=== PATIENT | male | born 1945 | race Hispanic/Latino ===

== ENCOUNTER 2017-06-11 23:27 | Inpatient (IN) | payer MEDICARE ==
[~2017-06-11] VITALS: Ht 170.2 cm; Wt 68.9 kg
[~2017-06-11 23:27] MED LIST: CHOLECALCIFEROL PO; CYCL10TA7 PO; FURO20TA4 PO; GABA-318 PO; IPRA4AER IH; IRON1CAP32 PO; MAGN400T6 PO; MIRA25TA PO; POTA10CA44 PO; RIVA15TA PO; TAMS0.4C32 PO; THEO400T3 PO; TRAM50TA4 PO; TRAV5DRO OP; [UNRECOGNIZED DRUG - CODE] PO
[2017-06-11] MEDS ORDERED: PROPOFOL 1000 MG/100 ML 100 ML IV ONE (23:32)
[2017-06-11 23:57] LABS: ABG BASE EXCESS 1.1 mmol/L (-2.0-3.0); ABG HCO3 29.5 mmol/L (21.0-28.0); ABG OXYGEN SATURATION 99.6 % (95.0-99.0); ABG PCO2 64 mmHg (35-48)
[2017-06-12] VITALS (19 sets, daily range): BP systolic 103–133; BP diastolic 57–74
[2017-06-12 00:02] LABS: BASOPHILS % (AUTO) 0.1 % (0.0-5.0); HEMATOCRIT 39.5 % (42-54); LYMPHOCYTES % (AUTO) 2.6 % (21.0-51.0); MEAN CORPUSCULAR HEMOGLOBIN 29.1 pg (27.0-33.0); MEAN CORPUSCULAR HGB CONC 32.3 g/dL (32.0-36.0); MEAN CORPUSCULAR VOLUME 89.9 fL (79-99); MONOCYTES % (AUTO) 5.1 % (3.0-13.0); NEUTROPHILS % (AUTO) 92.2 % (40.0-77.0); PLATELET COUNT (AUTO) 246 K/uL (130-400); RED BLOOD CELL COUNT(AUTO) 4.39 MIL/uL (4.50-6.20); RED CELL DISTRIBUTION WIDTH 15.2 % (11.0-15.5); WHITE BLOOD COUNT (AUTO) 23.7 K/uL (4.8-10.8)
[2017-06-12 00:18] LABS: B-TYPE NATRIURETIC PEPTIDE 872 pg/mL (0-100)
[2017-06-12] MEDS ORDERED: ZOSYN 3.375GM+NS 50ML 50 ML IV ONE (00:20)
[2017-06-12] MEDS ORDERED: CEFTRIAXONE SODIUM 1 GM ONE (00:20)
[2017-06-12 00:35] LABS: CREATININE 1.1 mg/dL (0.5-1.5); POTASSIUM 4.2 mmol/L (3.5-5.1)
[2017-06-12 00:48] LABS: ALBUMIN 3.2 g/dL (3.5-5.0); BILIRUBIN,TOTAL 0.3 mg/dL (0.2-1.0); CREATINE KINASE MB 4.6 ng/mL (0.5-3.6); TOTAL PROTEIN, SERUM 6.8 g/dL (6.0-8.3)
[2017-06-12] MEDS ORDERED: NOREPINEPHRINE BITARTRATE 1 MG/1 ML ML IV ONE ×2 (01:31→01:42)
[2017-06-12] MEDS ORDERED: PROPOFOL 1000 MG/100 ML 100 ML IV ONE (05:30)
[2017-06-12] MEDS ORDERED: PROPOFOL 1000 MG/100 ML IV PRN (08:15)
[2017-06-12] MEDS: FUROSEMIDE 10 MG/ML 4ML VIAL IV SCH ×2 (08:50→20:49)
[2017-06-12] MEDS: ZOSYN 3.375GM+NS 50ML 50 ML IV SCH ×2 (08:50→17:03)
[2017-06-12] MEDS: FAMOTIDINE/PF 20 MG/2 ML VIAL IV SCH ×2 (08:50→20:45)
[2017-06-12] MEDS: ENOXAPARIN SODIUM 40 MG/0.4 ML SYRINGE SQ SCH (08:51)
[2017-06-12] MEDS: METHYLPREDNISOLONE SOD SUCC 40MG/ML 1ML IVP SCH ×3 (08:53→20:47)
[2017-06-12] MEDS: NOREPINEPHRINE 4MG/NS 250ML 250 ML IV SCH (09:02)
[2017-06-12] MEDS ORDERED: GLUCAGON 1MG KIT 1 MG ML IM PRN (09:30)
[2017-06-12] MEDS ORDERED: DEXTROSE 50%-WATER 50 ML DISP.SYRIN IV PRN (09:30)
[2017-06-12] MEDS: IPRATROPIUM/ALBUTEROL SULFATE 3 ML SOLUTION IH SCH ×3 (10:58→23:47)
[2017-06-12] MEDS: INSULIN HUMULIN R 100 UNIT/ML 3ML SQ SCH ×2 (12:00→18:00)
[2017-06-12] MEDS: PROPOFOL 1000 MG/100 ML 100 ML IV PRN ×2 (13:19→20:44)
[2017-06-13] VITALS (27 sets, daily range): BP systolic 97–137; BP diastolic 56–87
[2017-06-13 00:13] LABS: MAGNESIUM 2.1 mg/dL (1.80-2.40); POTASSIUM 3.5 mmol/L (3.5-5.1)
[2017-06-13] MEDS: ZOSYN 3.375GM+NS 50ML 50 ML IV SCH ×3 (00:45→15:40)
[2017-06-13] MEDS: INSULIN HUMULIN R 100 UNIT/ML 3ML SQ SCH ×4 (00:45→17:30)
[2017-06-13] MEDS: METHYLPREDNISOLONE SOD SUCC 40MG/ML 1ML IVP SCH ×4 (02:05→20:59)
[2017-06-13] MEDS: PROPOFOL 1000 MG/100 ML 100 ML IV PRN (02:05)
[2017-06-13 03:58] LABS: CREATININE 1.1 mg/dL (0.5-1.5); POTASSIUM 3.2 mmol/L (3.5-5.1)
[2017-06-13 03:59] LABS: HEMATOCRIT 37.3 % (42-54); LYMPHOCYTES % (AUTO) 4.1 % (21.0-51.0); MEAN CORPUSCULAR HEMOGLOBIN 30.4 pg (27.0-33.0); MEAN CORPUSCULAR HGB CONC 34.3 g/dL (32.0-36.0); MEAN CORPUSCULAR VOLUME 88.9 fL (79-99); MONOCYTES % (AUTO) 4.6 % (3.0-13.0); NEUTROPHILS % (AUTO) 91.3 % (40.0-77.0); PLATELET COUNT (AUTO) 245 K/uL (130-400); RED BLOOD CELL COUNT(AUTO) 4.19 MIL/uL (4.50-6.20); RED CELL DISTRIBUTION WIDTH 15.2 % (11.0-15.5); WHITE BLOOD COUNT (AUTO) 13.3 K/uL (4.8-10.8)
[2017-06-13 04:25] LABS: B-TYPE NATRIURETIC PEPTIDE 752 pg/mL (0-100)
[2017-06-13] MEDS: IPRATROPIUM/ALBUTEROL SULFATE 3 ML SOLUTION IH SCH ×3 (06:28→19:28)
[2017-06-13] MEDS ORDERED: POTASSIUM CHLORIDE 10% ELIXIR 20 MEQ/15 ML UDCUP PO PRN (08:15)
[2017-06-13] MEDS: NOREPINEPHRINE 4MG/NS 250ML 250 ML IV SCH (08:43)
[2017-06-13] MEDS: POTASSIUM CHLORIDE 20MEQ/100ML 100 ML IV PRN ×2 (08:46→12:02)
[2017-06-13] MEDS: LIDOCAINE HCL-MPF 1% 2ML VIAL IVP PRN ×2 (08:46→12:02)
[2017-06-13 09:00] LABS: ABG HCO3 34.6 mmol/L (21.0-28.0); ABG OXYGEN SATURATION 99.1 % (95.0-99.0); ABG PCO2 41 mmHg (35-48)
[2017-06-13] MEDS: FUROSEMIDE 10 MG/ML 4ML VIAL IV SCH ×2 (09:00→21:01)
[2017-06-13] MEDS: FAMOTIDINE/PF 20 MG/2 ML VIAL IV SCH ×2 (09:00→21:01)
[2017-06-13] MEDS: ENOXAPARIN SODIUM 40 MG/0.4 ML SYRINGE SQ SCH (09:05)
[2017-06-13 12:20] LABS: ABG BASE EXCESS 13.3 mmol/L (-2.0-3.0); ABG PCO2 47 mmHg (35-48)
[2017-06-13] MEDS: POTASSIUM CHLORIDE 20 MEQ ERTAB PO PRN (21:03)
[2017-06-14] VITALS (21 sets, daily range): BP systolic 80–132; BP diastolic 41–70
[2017-06-14] MEDS: ZOSYN 3.375GM+NS 50ML 50 ML IV SCH ×3 (00:02→16:26)
[2017-06-14] MEDS: IPRATROPIUM/ALBUTEROL SULFATE 3 ML SOLUTION IH SCH ×5 (00:18→23:27)
[2017-06-14] MEDS: METHYLPREDNISOLONE SOD SUCC 40MG/ML 1ML IVP SCH ×4 (02:30→20:45)
[2017-06-14] MEDS: INSULIN HUMULIN R 100 UNIT/ML 3ML SQ SCH ×4 (06:00→16:13)
[2017-06-14 08:49] LABS: POTASSIUM 3.3 mmol/L (3.5-5.1)
[2017-06-14] MEDS: FAMOTIDINE/PF 20 MG/2 ML VIAL IV SCH ×2 (08:55→20:45)
[2017-06-14] MEDS: FUROSEMIDE 10 MG/ML 4ML VIAL IV SCH ×2 (08:55→20:45)
[2017-06-14] MEDS: ENOXAPARIN SODIUM 40 MG/0.4 ML SYRINGE SQ SCH (09:02)
[2017-06-14] MEDS: POTASSIUM CHLORIDE 20 MEQ ERTAB PO PRN ×3 (09:25→17:40)
[2017-06-15] MEDS: ZOSYN 3.375GM+NS 50ML 50 ML IV SCH ×3 (00:53→15:38)
[2017-06-15] MEDS: METHYLPREDNISOLONE SOD SUCC 40MG/ML 1ML IVP SCH ×4 (03:04→21:42)
[2017-06-15 03:10] VITALS: BP 102/66
[2017-06-15] MEDS: IPRATROPIUM/ALBUTEROL SULFATE 3 ML SOLUTION IH SCH ×4 (05:49→23:51)
[2017-06-15] MEDS: INSULIN HUMULIN R 100 UNIT/ML 3ML SQ SCH ×5 (06:00→21:49)
[2017-06-15] MEDS ORDERED: GUAIFENESIN-DM 200/20 MG 10 ML PO PRN (06:45)
[2017-06-15 07:51] VITALS: BP 115/68
[2017-06-15] MEDS: ENOXAPARIN SODIUM 40 MG/0.4 ML SYRINGE SQ SCH (07:53)
[2017-06-15] MEDS: FAMOTIDINE/PF 20 MG/2 ML VIAL IV SCH ×2 (07:54→21:42)
[2017-06-15] MEDS: FUROSEMIDE 10 MG/ML 4ML VIAL IV SCH ×2 (07:54→21:43)
[2017-06-15 11:19] VITALS: BP 114/67
[2017-06-15 15:58] VITALS: BP 117/69
[2017-06-15 19:10] VITALS: BP 112/58
[2017-06-15 23:05] VITALS: BP 101/56
[2017-06-16] MEDS: ZOSYN 3.375GM+NS 50ML 50 ML IV SCH ×3 (00:25→16:18)
[2017-06-16] MEDS: METHYLPREDNISOLONE SOD SUCC 40MG/ML 1ML IVP SCH ×4 (02:10→21:15)
[2017-06-16 03:05] VITALS: BP 97/52
[2017-06-16] MEDS: INSULIN HUMULIN R 100 UNIT/ML 3ML SQ SCH ×4 (06:00→21:03)
[2017-06-16] MEDS: IPRATROPIUM/ALBUTEROL SULFATE 3 ML SOLUTION IH SCH ×4 (06:25→23:06)
[2017-06-16 08:16] VITALS: BP 100/71
[2017-06-16] MEDS: FUROSEMIDE 10 MG/ML 4ML VIAL IV SCH ×2 (08:29→20:55)
[2017-06-16] MEDS: FAMOTIDINE/PF 20 MG/2 ML VIAL IV SCH ×2 (08:29→20:55)
[2017-06-16] MEDS: ENOXAPARIN SODIUM 40 MG/0.4 ML SYRINGE SQ SCH (08:29)
[2017-06-16] MEDS: POTASSIUM CHLORIDE 20 MEQ ERTAB PO PRN (08:37)
[2017-06-16 11:38] VITALS: BP 98/61
[2017-06-16 16:10] VITALS: BP 106/65
[2017-06-16 19:00] VITALS: BP 120/53
[2017-06-16 23:00] VITALS: BP 119/69
[2017-06-17] MEDS: ZOSYN 3.375GM+NS 50ML 50 ML IV SCH ×3 (02:40→16:44)
[2017-06-17] MEDS: METHYLPREDNISOLONE SOD SUCC 40MG/ML 1ML IVP SCH ×4 (02:40→20:17)
[2017-06-17 03:00] VITALS: BP 102/61
[2017-06-17] MEDS: INSULIN HUMULIN R 100 UNIT/ML 3ML SQ SCH ×4 (05:58→22:07)
[2017-06-17] MEDS: IPRATROPIUM/ALBUTEROL SULFATE 3 ML SOLUTION IH SCH ×3 (06:41→17:26)
[2017-06-17 07:00] VITALS: BP 103/69
[2017-06-17] MEDS: FUROSEMIDE 10 MG/ML 4ML VIAL IV SCH ×2 (09:12→20:18)
[2017-06-17] MEDS: FAMOTIDINE/PF 20 MG/2 ML VIAL IV SCH ×2 (09:13→20:16)
[2017-06-17 11:00] VITALS: BP_SYST 106; BP_SYST 91; BP_DIAS 67; BP_DIAS 68
[2017-06-17 15:39] VITALS: BP 124/68
[2017-06-17] MEDS: ENOXAPARIN SODIUM 40 MG/0.4 ML SYRINGE SQ SCH (16:44)
[2017-06-17 19:00] VITALS: BP 106/41
[2017-06-17 23:00] VITALS: BP 100/56
[2017-06-18] MEDS: ZOSYN 3.375GM+NS 50ML 50 ML IV SCH ×2 (00:13→08:13)
[2017-06-18] MEDS ORDERED: ALBUTEROL SULFATE 0.083% 2.5 MG/3 ML INH IH ONE (00:19)
[2017-06-18] MEDS ORDERED: IPRATROPIUM 0.5 MG/2.5 ML INH IH ONE (00:19)
[2017-06-18] MEDS: IPRATROPIUM/ALBUTEROL SULFATE 3 ML SOLUTION IH SCH ×4 (00:24→11:40)
[2017-06-18] MEDS: METHYLPREDNISOLONE SOD SUCC 40MG/ML 1ML IVP SCH ×3 (01:19→15:38)
[2017-06-18 03:00] VITALS: BP 116/59
[2017-06-18] MEDS ORDERED: INSULIN HUMULIN R 100 UNIT/ML 3ML SQ SCH (07:30)
[2017-06-18 08:00] VITALS: BP 126/59
[2017-06-18 08:03] LABS: HEMATOCRIT 48.2 % (42-54); MEAN CORPUSCULAR HEMOGLOBIN 29.7 pg (27.0-33.0); MEAN CORPUSCULAR HGB CONC 33.4 g/dL (32.0-36.0); MEAN CORPUSCULAR VOLUME 88.9 fL (79-99); PLATELET COUNT (AUTO) 245 K/uL (130-400); RED BLOOD CELL COUNT(AUTO) 5.42 MIL/uL (4.50-6.20); WHITE BLOOD COUNT (AUTO) 12.7 K/uL (4.8-10.8)
[2017-06-18] MEDS: FAMOTIDINE/PF 20 MG/2 ML VIAL IV SCH (08:13)
[2017-06-18] MEDS: FUROSEMIDE 10 MG/ML 4ML VIAL IV SCH (08:13)
[2017-06-18] MEDS: ENOXAPARIN SODIUM 40 MG/0.4 ML SYRINGE SQ SCH (08:14)
[2017-06-18 08:28] LABS: ALBUMIN 3.2 g/dL (3.5-5.0); BILIRUBIN,TOTAL 0.4 mg/dL (0.2-1.0); CREATININE 0.9 mg/dL (0.5-1.5); POTASSIUM 3.6 mmol/L (3.5-5.1); TOTAL PROTEIN, SERUM 6.9 g/dL (6.0-8.3)
[2017-06-18 12:18] VITALS: BP 99/68
[2017-06-18 16:00] VITALS: BP 105/65
== END 2017-06-18 17:30 | disposition home or self-care (01) | DRG 871 ==
LOC: EDH 23:27 → EDHIP 06-12 00:45 → 2CH 06-12 01:15 → 3CH 06-14 17:43
PROVIDERS: ADMIT Family Medicine; ATTEND Family Medicine
PROC: 5A1945Z Respiratory Ventilation, 24-96 Consecutive Hours (ICD-10-PCS; principal; 2017-06-12)
PROC: 0BH17EZ Insertion of Endotracheal Airway into Trachea, Via Natural or Artificial Opening (ICD-10-PCS; 2017-06-12)
DX: A41.9 Sepsis, unspecified organism (principal); J96.21 Acute and chronic respiratory failure with hypoxia; J18.9 Pneumonia, unspecified organism; I50.43 Acute on chronic combined systolic (congestive) and diastolic (congestive) heart failure; I11.0 Hypertensive heart disease with heart failure; E11.9 Type 2 diabetes mellitus without complications; I48.91 Unspecified atrial fibrillation; J96.22 Acute and chronic respiratory failure with hypercapnia; J44.1 Chronic obstructive pulmonary disease with (acute) exacerbation; J44.0 Chronic obstructive pulmonary disease with (acute) lower respiratory infection; I25.10 Atherosclerotic heart disease of native coronary artery without angina pectoris; Z79.01 Long term (current) use of anticoagulants; Z86.711 Personal history of pulmonary embolism; Z87.891 Personal history of nicotine dependence; Z95.0 Presence of cardiac pacemaker; Z28.21 Immunization not carried out because of patient refusal
CPT/HCPCS: 36415; 36600; 71010; 71045; 80048; 80053; 80162; 82330; 82435; 82550; 82553; 82803; 82947; 82948; 83605; 83735; 83880; 84132; 84295; 84484; 85018; 85025; 85027; 87040; 87804; 93005; 94003; 94640; 94660; 94664; 99291; J0696; J1650; J1815; J1940; J1956; J2543; J2704; J2920; J2930; J3480; J3490; J7030; J7040

== ENCOUNTER 2017-06-30 07:39 | Inpatient (IN) | payer MEDICARE ==
[~2017-06-30] VITALS: Ht 170.2 cm; Wt 70.0 kg
[2017-06-30] MEDS ORDERED: IPRATROPIUM 0.5 MG/2.5 ML INH IH ONE (07:53)
[2017-06-30 08:25] LABS: POTASSIUM 3.9 mmol/L (3.5-5.1)
[2017-06-30 08:31] LABS: BILIRUBIN,TOTAL 0.3 mg/dL (0.2-1.0); EOSINOPHILS % (AUTO) 1.3 % (0.0-8.0); HEMATOCRIT 44.4 % (42-54); LYMPHOCYTES % (AUTO) 3.7 % (21.0-51.0); MEAN CORPUSCULAR HEMOGLOBIN 29.7 pg (27.0-33.0); MEAN CORPUSCULAR HGB CONC 31.9 g/dL (32.0-36.0); MEAN CORPUSCULAR VOLUME 92.9 fL (79-99); MONOCYTES % (AUTO) 2.9 % (3.0-13.0); NEUTROPHILS % (AUTO) 89.1 % (40.0-77.0); NUCLEATED RED BLOOD CELLS 0.3 % (0.0-0.19); RED BLOOD CELL COUNT(AUTO) 4.78 MIL/uL (4.50-6.20); RED CELL DISTRIBUTION WIDTH 14.9 % (11.0-15.5); TOTAL PROTEIN, SERUM 6.5 g/dL (6.0-8.3); WHITE BLOOD COUNT (AUTO) 15.3 K/uL (4.8-10.8)
[2017-06-30] MEDS ORDERED: METHYLPREDNISOLONE SOD SUCC 125MG/2ML VIAL ONE (08:53)
[2017-06-30] MEDS ORDERED: DIGOXIN 250 MCG TABLET PO ONE ×2 (09:01→09:04)
[2017-06-30 09:14] LABS: PLATELET COUNT (AUTO) 110 K/uL (130-400)
[2017-06-30 11:05] LABS: ABG BASE EXCESS 2.8 mmol/L (-2.0-3.0); ABG HCO3 26.7 mmol/L (21.0-28.0); ABG OXYGEN SATURATION 99.4 % (95.0-99.0); ABG PCO2 39 mmHg (35-48)
[2017-06-30] MEDS ORDERED: LEVOFLOXACIN 500 MG/D5W 100 ML 100 ML ONE (12:28)
[2017-06-30 14:30] VITALS: BP 114/66
[2017-06-30] MEDS ORDERED: TERB250T51 PO (14:45)
[2017-06-30] MEDS ORDERED: FLUT16H NS (14:45)
[2017-06-30] MEDS ORDERED: METO10TA3 PO (14:45)
[2017-06-30] MEDS ORDERED: SUCR1TAB2 PO (14:45)
[2017-06-30] MEDS ORDERED: MAG HYDROX/AL HYDROX/SIMETH ES 30 ML SUSP UDCUP PO PRN (15:00)
[2017-06-30] MEDS ORDERED: NITROGLYCERIN 0.4 MG SL TAB SL PRN (15:00)
[2017-06-30] MEDS ORDERED: ZOLPIDEM TARTRATE 5 MG TAB PO PRN (15:00)
[2017-06-30] MEDS ORDERED: POTASSIUM CHLORIDE 20MEQ/100ML 100 ML IV PRN (15:00)
[2017-06-30] MEDS ORDERED: LACTULOSE 20 GM/30 ML UDCUP PO PRN (15:00)
[2017-06-30] MEDS ORDERED: CLONIDINE HCL 0.1 MG TABLET PO PRN (15:00)
[2017-06-30] MEDS ORDERED: ONDANSETRON HCL 4 MG/2 ML VIAL IVP PRN (15:00)
[2017-06-30] MEDS ORDERED: DiphenhydrAMINE HCL 50 MG/ML VIAL IVP PRN (15:00)
[2017-06-30] MEDS ORDERED: POTASSIUM CHLORIDE 10% ELIXIR 20 MEQ/15 ML UDCUP PO PRN (15:00)
[2017-06-30] MEDS ORDERED: GUAIFENESIN SUGAR-FREE 100 MG/5 ML UDCUP PO PRN (15:00)
[2017-06-30] MEDS ORDERED: IPRATROPIUM/ALBUTEROL SULFATE 3 ML SOLUTION IH PRN (15:00)
[2017-06-30] MEDS ORDERED: GLUCAGON 1MG KIT 1 MG ML IM PRN (15:00)
[2017-06-30] MEDS ORDERED: DEXTROSE 50%-WATER 50 ML DISP.SYRIN IV PRN (15:00)
[2017-06-30] MEDS ORDERED: SODIUM CHLORIDE 0.9% 10 ML VIAL IVP SCH (15:00)
[2017-06-30] MEDS ORDERED: ACETAMINOPHEN 325 MG TAB PO PRN ×2 (15:00)
[2017-06-30] MEDS ORDERED: LIDOCAINE HCL-MPF 1% 2ML VIAL IJ PRN (15:00)
[2017-06-30] MEDS: ENOXAPARIN SODIUM 40 MG/0.4 ML SYRINGE SQ SCH (15:31)
[2017-06-30] MEDS: INSULIN R PO SSI SQ SCH ×2 (16:30→20:55)
[2017-06-30 16:41] VITALS: BP 122/74
[2017-06-30 19:31] VITALS: BP 132/69
[2017-06-30] MEDS: FAMOTIDINE 20MG TAB 20 MG TAB PO SCH (20:00)
[2017-06-30] MEDS: IPRATROPIUM/ALBUTEROL SULFATE 3 ML SOLUTION IH SCH (22:08)
[2017-07-01] VITALS (7 sets, daily range): BP systolic 96–118; BP diastolic 46–66
[2017-07-01] MEDS: IPRATROPIUM/ALBUTEROL SULFATE 3 ML SOLUTION IH SCH ×5 (02:21→21:59)
[2017-07-01 04:37] LABS: HEMATOCRIT 32.4 % (42-54); MEAN CORPUSCULAR HEMOGLOBIN 29.5 pg (27.0-33.0); MEAN CORPUSCULAR HGB CONC 33.4 g/dL (32.0-36.0); MEAN CORPUSCULAR VOLUME 88.2 fL (79-99); PLATELET COUNT (AUTO) 256 K/uL (130-400); RED BLOOD CELL COUNT(AUTO) 3.67 MIL/uL (4.50-6.20); WHITE BLOOD COUNT (AUTO) 11.2 K/uL (4.8-10.8)
[2017-07-01 04:48] LABS: POTASSIUM 3.7 mmol/L (3.5-5.1)
[2017-07-01] MEDS: POTASSIUM CHLORIDE 20 MEQ ERTAB PO PRN ×2 (05:28→06:21)
[2017-07-01] MEDS: INSULIN R PO SSI SQ SCH ×4 (05:38→21:00)
[2017-07-01] MEDS ORDERED: DOCUSATE SODIUM 100 MG CAP PO PRN (08:00)
[2017-07-01] MEDS: LEVOFLOXACIN 500 MG/D5W 100 ML 100 ML IV SCH (09:36)
[2017-07-01] MEDS: ENOXAPARIN SODIUM 40 MG/0.4 ML SYRINGE SQ SCH (09:37)
[2017-07-01] MEDS: FAMOTIDINE 20MG TAB 20 MG TAB PO SCH ×2 (09:37→22:06)
[2017-07-01] MEDS: METHYLPREDNISOLONE SOD SUCC 125MG/2ML VIAL IVP SCH (09:37)
[2017-07-01] MEDS: DIPHENHYDRAMINE HCL 25 MG CAPSULE PO PRN ×2 (12:27→22:07)
[2017-07-01 16:39] LABS: ABG BASE EXCESS -0.3 mmol/L (-2.0-3.0); ABG HCO3 23.3 mmol/L (21.0-28.0); ABG OXYGEN SATURATION 96.9 % (95.0-99.0); ABG PCO2 35 mmHg (35-48)
[2017-07-01] MEDS: FUROSEMIDE 10 MG/ML 2ML VIAL IV SCH (17:07)
[2017-07-02] MEDS: IPRATROPIUM/ALBUTEROL SULFATE 3 ML SOLUTION IH SCH ×3 (01:51→09:28)
[2017-07-02] MEDS: FUROSEMIDE 10 MG/ML 2ML VIAL IV SCH ×2 (01:58→17:17)
[2017-07-02 03:39] VITALS: BP 104/56
[2017-07-02] MEDS: INSULIN R PO SSI SQ SCH ×4 (06:12→21:00)
[2017-07-02 06:35] LABS: HEMATOCRIT 32.5 % (42-54); RED BLOOD CELL COUNT(AUTO) 3.72 MIL/uL (4.50-6.20)
[2017-07-02 06:36] LABS: MEAN CORPUSCULAR HEMOGLOBIN 29.2 pg (27.0-33.0); MEAN CORPUSCULAR HGB CONC 33.5 g/dL (32.0-36.0); MEAN CORPUSCULAR VOLUME 87.3 fL (79-99); PLATELET COUNT (AUTO) 290 K/uL (130-400); RED CELL DISTRIBUTION WIDTH 15.2 % (11.0-15.5)
[2017-07-02 06:56] LABS: POTASSIUM 3.9 mmol/L (3.5-5.1)
[2017-07-02 07:00] VITALS: BP 101/62
[2017-07-02] MEDS: METHYLPREDNISOLONE SOD SUCC 125MG/2ML VIAL IVP SCH (09:27)
[2017-07-02] MEDS: ENOXAPARIN SODIUM 40 MG/0.4 ML SYRINGE SQ SCH (09:28)
[2017-07-02] MEDS: FAMOTIDINE 20MG TAB 20 MG TAB PO SCH ×2 (09:28→20:27)
[2017-07-02] MEDS: LEVOFLOXACIN 500 MG/D5W 100 ML 100 ML IV SCH (09:28)
[2017-07-02 11:00] VITALS: BP 112/61
[2017-07-02] MEDS: ALBUTEROL SULFATE 0.083% 2.5 MG/3 ML INH IH SCH ×2 (13:30→22:13)
[2017-07-02] MEDS: IPRATROPIUM 0.5 MG/2.5 ML INH IH SCH ×3 (13:30→22:13)
[2017-07-02 16:00] VITALS: BP 108/57
[2017-07-02 19:34] VITALS: BP 100/58
[2017-07-02] MEDS: METHYLPREDNISOLONE SOD SUCC 40MG/ML 1ML IVP SCH (20:27)
[2017-07-02 23:32] VITALS: BP 103/50
[2017-07-03] MEDS: IPRATROPIUM 0.5 MG/2.5 ML INH IH SCH ×6 (01:51→22:36)
[2017-07-03 03:23] VITALS: BP 96/55
[2017-07-03 03:44] LABS: CREATININE 0.9 mg/dL (0.5-1.5); POTASSIUM 4.5 mmol/L (3.5-5.1)
[2017-07-03 03:49] LABS: HEMATOCRIT 33.7 % (42-54); MEAN CORPUSCULAR HEMOGLOBIN 29.5 pg (27.0-33.0); MEAN CORPUSCULAR HGB CONC 33.5 g/dL (32.0-36.0); MEAN CORPUSCULAR VOLUME 88.1 fL (79-99); PLATELET COUNT (AUTO) 292 K/uL (130-400); RED BLOOD CELL COUNT(AUTO) 3.83 MIL/uL (4.50-6.20); RED CELL DISTRIBUTION WIDTH 15.1 % (11.0-15.5); WHITE BLOOD COUNT (AUTO) 12.8 K/uL (4.8-10.8)
[2017-07-03] MEDS: FUROSEMIDE 10 MG/ML 2ML VIAL IV SCH ×2 (05:20→16:38)
[2017-07-03] MEDS: INSULIN R PO SSI SQ SCH ×4 (06:20→21:00)
[2017-07-03] MEDS: ALBUTEROL SULFATE 0.083% 2.5 MG/3 ML INH IH SCH ×3 (06:35→22:37)
[2017-07-03 08:00] VITALS: BP 105/60
[2017-07-03] MEDS: METHYLPREDNISOLONE SOD SUCC 125MG/2ML VIAL IVP SCH (09:00)
[2017-07-03] MEDS: FAMOTIDINE 20MG TAB 20 MG TAB PO SCH ×2 (09:10→22:32)
[2017-07-03] MEDS: LEVOFLOXACIN 500 MG/D5W 100 ML 100 ML IV SCH (09:10)
[2017-07-03] MEDS: METHYLPREDNISOLONE SOD SUCC 40MG/ML 1ML IVP SCH (09:10)
[2017-07-03] MEDS: ENOXAPARIN SODIUM 40 MG/0.4 ML SYRINGE SQ SCH (09:11)
[2017-07-03 12:02] VITALS: BP 115/67
[2017-07-03 16:00] VITALS: BP 120/77
[2017-07-03 19:00] VITALS: BP 125/70
[2017-07-03 23:00] VITALS: BP 113/67
[2017-07-04] MEDS: IPRATROPIUM 0.5 MG/2.5 ML INH IH SCH ×3 (01:29→09:53)
[2017-07-04 03:00] VITALS: BP 119/73
[2017-07-04 04:32] LABS: HEMATOCRIT 34.7 % (42-54); MEAN CORPUSCULAR HEMOGLOBIN 29.5 pg (27.0-33.0); MEAN CORPUSCULAR HGB CONC 33.6 g/dL (32.0-36.0); PLATELET COUNT (AUTO) 294 K/uL (130-400); RED BLOOD CELL COUNT(AUTO) 3.95 MIL/uL (4.50-6.20); RED CELL DISTRIBUTION WIDTH 15.2 % (11.0-15.5); WHITE BLOOD COUNT (AUTO) 10.9 K/uL (4.8-10.8)
[2017-07-04 04:45] LABS: CREATININE 0.9 mg/dL (0.5-1.5); POTASSIUM 3.7 mmol/L (3.5-5.1)
[2017-07-04] MEDS ORDERED: POTASSIUM CHLORIDE 10 MEQ/TAB.SA PO ONE ×4 (05:09→06:00)
[2017-07-04] MEDS: FUROSEMIDE 10 MG/ML 2ML VIAL IV SCH (05:40)
[2017-07-04] MEDS: ALBUTEROL SULFATE 0.083% 2.5 MG/3 ML INH IH SCH (06:13)
[2017-07-04] MEDS: INSULIN R PO SSI SQ SCH ×2 (06:17→11:30)
[2017-07-04 07:44] VITALS: BP 116/67
[2017-07-04] MEDS ORDERED: PREDNISONE 20 MG TABLET PO SCH (09:00)
[2017-07-04] MEDS: ENOXAPARIN SODIUM 40 MG/0.4 ML SYRINGE SQ SCH (09:23)
[2017-07-04] MEDS: FAMOTIDINE 20MG TAB 20 MG TAB PO SCH (09:23)
[2017-07-04] MEDS: LEVOFLOXACIN 500 MG/D5W 100 ML 100 ML IV SCH (09:26)
== END 2017-07-04 13:30 | disposition home or self-care (01) | DRG 291 ==
LOC: EDH 07:39 → EDHIP 11:30 → 2DH 14:33
PROVIDERS: ADMIT Family Medicine; ATTEND Family Medicine
PROC: 5A09357 Assistance with Respiratory Ventilation, Less than 24 Consecutive Hours, Continuous Positive Airway Pressure (ICD-10-PCS; principal; 2017-07-02)
PROC: 5A09357 Assistance with Respiratory Ventilation, Less than 24 Consecutive Hours, Continuous Positive Airway Pressure (ICD-10-PCS; 2017-07-02)
PROC: 5A09357 Assistance with Respiratory Ventilation, Less than 24 Consecutive Hours, Continuous Positive Airway Pressure (ICD-10-PCS; 2017-07-02)
DX: I50.23 Acute on chronic systolic (congestive) heart failure (principal); J96.21 Acute and chronic respiratory failure with hypoxia; I48.91 Unspecified atrial fibrillation; J96.22 Acute and chronic respiratory failure with hypercapnia; J44.1 Chronic obstructive pulmonary disease with (acute) exacerbation; E11.9 Type 2 diabetes mellitus without complications; I25.10 Atherosclerotic heart disease of native coronary artery without angina pectoris; Z79.899 Other long term (current) drug therapy; Z86.711 Personal history of pulmonary embolism; Z95.0 Presence of cardiac pacemaker
CPT/HCPCS: 36415; 36600; 71045; 71046; 80048; 80053; 80162; 82803; 82948; 85025; 85027; 93005; 94640; 94660; 94664; 99291; J1650; J1815; J1940; J1956; J2920; J2930; Q0163

== ENCOUNTER 2017-12-08 10:15 | Inpatient (IN) | payer MEDICARE ==
[~2017-12-08] VITALS: Ht 160 cm; Wt 67.8 kg
[~2017-12-08 10:15] MED LIST changes: +FLUT16H NS; +METO10TA3 PO; +SUCR1TAB2 PO; +TERB250T51 PO
[2017-12-08 10:49] LABS: BASOPHILS % (AUTO) 0.4 % (0.0-5.0); EOSINOPHILS % (AUTO) 4.2 % (0.0-8.0); HEMATOCRIT 35.8 % (42-54); LYMPHOCYTES % (AUTO) 18.1 % (21.0-51.0); MEAN CORPUSCULAR HEMOGLOBIN 27.8 pg (27.0-33.0); MEAN CORPUSCULAR HGB CONC 34.3 g/dL (32.0-36.0); MEAN CORPUSCULAR VOLUME 80.9 fL (79-99); MONOCYTES % (AUTO) 12.6 % (3.0-13.0); NEUTROPHILS % (AUTO) 64.7 % (40.0-77.0); PLATELET COUNT (AUTO) 238 K/uL (130-400); RED BLOOD CELL COUNT(AUTO) 4.42 MIL/uL (4.50-6.20); WHITE BLOOD COUNT (AUTO) 7.4 K/uL (4.8-10.8)
[2017-12-08 11:19] LABS: CREATININE 0.9 mg/dL (0.5-1.5)
[2017-12-08 11:23] LABS: ALBUMIN 3.3 g/dL (3.5-5.0); BILIRUBIN,TOTAL 0.4 mg/dL (0.2-1.0); TOTAL PROTEIN, SERUM 7.2 g/dL (6.0-8.3)
[2017-12-08] MEDS ORDERED: BENZONATATE 100 MG CAPSULE PO ONE (11:54)
[2017-12-08] MEDS ORDERED: METHYLPREDNISOLONE SOD SUCC 125MG/2ML VIAL ONE (11:54)
[2017-12-08] MEDS ORDERED: LEVOFLOXACIN 500 MG/D5W 100 ML 100 ML ONE (11:55)
[2017-12-08] MEDS ORDERED: IPRATROPIUM/ALBUTEROL SULFATE 3 ML SOLUTION IH ONE (11:57)
[2017-12-08] MEDS ORDERED: VANCOMYCIN PROTOCOL PER PHARMACY IV SCH (12:45)
[2017-12-08 12:52] LABS: THEOPHYLLINE 9.4 mcg/mL (10.0-20.0)
[2017-12-08] MEDS ORDERED: GLUCAGON 1MG KIT 1 MG ML IM PRN (13:00)
[2017-12-08] MEDS ORDERED: DEXTROSE 50%-WATER 50 ML DISP.SYRIN IV PRN (13:00)
[2017-12-08] MEDS ORDERED: IPRATROPIUM/ALBUTEROL SULFATE 3 ML SOLUTION IH PRN ×2 (13:00→15:30)
[2017-12-08] MEDS ORDERED: VANCOMYCIN 1GM+NS 250ML 250 ML IV SCH (13:30)
[2017-12-08] MEDS: IPRATROPIUM/ALBUTEROL SULFATE 3 ML SOLUTION IH SCH ×3 (14:00→22:48)
[2017-12-08 14:10] VITALS: BP 127/60
[2017-12-08] MEDS: ENOXAPARIN SODIUM 40 MG/0.4 ML SYRINGE SQ SCH (14:18)
[2017-12-08] MEDS ORDERED: LISI2.5T2 PO (15:11)
[2017-12-08] MEDS ORDERED: METO-409 PO (15:11)
[2017-12-08] MEDS ORDERED: METO10TA3 PO (15:11)
[2017-12-08] MEDS ORDERED: TRAZ-144 PO (15:11)
[2017-12-08] MEDS ORDERED: DIGO125T87 PO (15:11)
[2017-12-08] MEDS ORDERED: GABA300S PO (15:11)
[2017-12-08] MEDS ORDERED: ASPI-1197 PO (15:11)
[2017-12-08] MEDS ORDERED: COMPOUND IV REFRIGERATED 1 EACH IVSOLN MISC PRN (15:15)
[2017-12-08] MEDS ORDERED: TRAMADOL HCL 50 MG TABLET PO PRN (15:30)
[2017-12-08] MEDS ORDERED: DIGOXIN 125 MCG TABLET PO SCH (16:00)
[2017-12-08] MEDS: INSULIN HUMULIN R 100 UNIT/ML 3ML SQ SCH ×2 (16:17→21:19)
[2017-12-08] MEDS: METOCLOPRAMIDE 10 MG TABLET PO SCH (16:17)
[2017-12-08] MEDS: SUCRALFATE 1 GM TABLET PO SCH (16:17)
[2017-12-08 16:31] VITALS: BP 119/56
[2017-12-08] MEDS ORDERED: METOCLOPRAMIDE 10 MG TABLET PO SCH (17:00)
[2017-12-08 17:28] LABS: DIGOXIN > 5.00 ng/mL (0.50-2.00)
[2017-12-08] MEDS ORDERED: INSULIN R NPO SSI SQ SCH (18:00)
[2017-12-08 19:50] VITALS: BP 122/65
[2017-12-08] MEDS ORDERED: METOPROLOL TARTRATE 50 MG TAB PO SCH (21:00)
[2017-12-08] MEDS ORDERED: THEOPHYLLINE ANHYDROUS 100 MG TAB.SR.12H PO SCH (21:00)
[2017-12-08] MEDS: METOPROLOL TARTRATE 50 MG TAB PO SCH (21:12)
[2017-12-08] MEDS: TRAZODONE HCL 50 MG TAB PO SCH (21:13)
[2017-12-08] MEDS: TAMSULOSIN HCL 0.4 MG CAP.ER.24H PO SCH (21:13)
[2017-12-08] MEDS: METHYLPREDNISOLONE SOD SUCC 125MG/2ML VIAL IVP SCH (21:13)
[2017-12-08] MEDS: GABAPENTIN 300 MG CAPSULE PO SCH (21:13)
[2017-12-08 23:40] VITALS: BP 145/75
[2017-12-09] MEDS: IPRATROPIUM/ALBUTEROL SULFATE 3 ML SOLUTION IH SCH ×6 (01:07→22:09)
[2017-12-09] MEDS: VANCOMYCIN 0.75 GM in N.S. 250 ML IV SCH ×2 (02:04→15:11)
[2017-12-09] MEDS: METHYLPREDNISOLONE SOD SUCC 125MG/2ML VIAL IVP SCH ×3 (03:48→22:37)
[2017-12-09 03:53] VITALS: BP 127/65
[2017-12-09] MEDS: INSULIN HUMULIN R 100 UNIT/ML 3ML SQ SCH ×4 (06:12→21:00)
[2017-12-09 06:20] LABS: HEMATOCRIT 35.3 % (42-54); MEAN CORPUSCULAR HEMOGLOBIN 28.4 pg (27.0-33.0); MEAN CORPUSCULAR HGB CONC 34.7 g/dL (32.0-36.0); MEAN CORPUSCULAR VOLUME 81.7 fL (79-99); PLATELET COUNT (AUTO) 250 K/uL (130-400); RED BLOOD CELL COUNT(AUTO) 4.32 MIL/uL (4.50-6.20); WHITE BLOOD COUNT (AUTO) 9.2 K/uL (4.8-10.8)
[2017-12-09] MEDS: METOCLOPRAMIDE 10 MG TABLET PO SCH ×3 (06:25→16:54)
[2017-12-09] MEDS: SUCRALFATE 1 GM TABLET PO SCH ×3 (06:25→16:54)
[2017-12-09 06:34] LABS: ALBUMIN 3.1 g/dL (3.5-5.0); BILIRUBIN,TOTAL 0.4 mg/dL (0.2-1.0); CREATININE 0.9 mg/dL (0.5-1.5); POTASSIUM 4.1 mmol/L (3.5-5.1)
[2017-12-09 07:31] VITALS: BP 118/65
[2017-12-09] MEDS: POTASSIUM CHLORIDE 10 MEQ/TAB.SA PO SCH (08:12)
[2017-12-09] MEDS: LISINOPRIL 2.5 MG TABLET PO SCH (08:12)
[2017-12-09] MEDS: TERBINAFINE HCL 250 MG PO SCH (08:13)
[2017-12-09] MEDS: ASPIRIN 81MG TAB.CHEW PO SCH (08:13)
[2017-12-09] MEDS: MIRABEGRON 25 MG PO SCH (08:13)
[2017-12-09] MEDS: ENOXAPARIN SODIUM 40 MG/0.4 ML SYRINGE SQ SCH (08:17)
[2017-12-09] MEDS: GABAPENTIN 300 MG CAPSULE PO SCH ×3 (08:17→22:38)
[2017-12-09] MEDS: METOPROLOL TARTRATE 50 MG TAB PO SCH ×2 (08:19→22:38)
[2017-12-09] MEDS ORDERED: FUROSEMIDE 20 MG TABLET PO SCH (09:00)
[2017-12-09] MEDS: LEVOFLOXACIN 750 MG/D5W 150 ML 150 ML IV SCH (10:15)
[2017-12-09 11:20] VITALS: BP 104/62
[2017-12-09 16:32] VITALS: BP 151/57
[2017-12-09] MEDS: ALPRAZOLAM 0.25 MG TABLET PO PRN (16:54)
[2017-12-09 20:20] VITALS: BP 144/76
[2017-12-09] MEDS: GUAIFENESIN-CODEINE 5 ML SYRUP PO PRN (22:37)
[2017-12-09] MEDS: TRAZODONE HCL 50 MG TAB PO SCH (22:37)
[2017-12-09] MEDS: TAMSULOSIN HCL 0.4 MG CAP.ER.24H PO SCH (22:38)
[2017-12-10 00:20] VITALS: BP 142/73
[2017-12-10] MEDS: IPRATROPIUM/ALBUTEROL SULFATE 3 ML SOLUTION IH SCH ×6 (01:11→22:13)
[2017-12-10] MEDS: ALPRAZOLAM 0.25 MG TABLET PO PRN ×2 (02:09→10:43)
[2017-12-10] MEDS: VANCOMYCIN 0.75 GM in N.S. 250 ML IV SCH ×2 (02:10→20:35)
[2017-12-10 04:20] VITALS: BP 126/74
[2017-12-10] MEDS: INSULIN HUMULIN R 100 UNIT/ML 3ML SQ SCH ×2 (06:20→16:22)
[2017-12-10] MEDS: SUCRALFATE 1 GM TABLET PO SCH ×3 (06:45→16:36)
[2017-12-10] MEDS: METOCLOPRAMIDE 10 MG TABLET PO SCH ×3 (06:45→16:36)
[2017-12-10] MEDS: GUAIFENESIN-CODEINE 5 ML SYRUP PO PRN ×2 (06:46→14:50)
[2017-12-10 07:44] VITALS: BP 129/98
[2017-12-10] MEDS ORDERED: MORPHINE SULFATE 2 MG/ML 1ML SYG IV PRN (08:00)
[2017-12-10] MEDS ORDERED: ACETYLCYSTEINE 600 MG CAPSULE PO SCH (08:50)
[2017-12-10] MEDS: TERBINAFINE HCL 250 MG PO SCH (09:00)
[2017-12-10] MEDS: CHOLECALCIFEROL PO SCH (09:00)
[2017-12-10] MEDS: MIRABEGRON 25 MG PO SCH (09:00)
[2017-12-10] MEDS: LISINOPRIL 2.5 MG TABLET PO SCH (09:25)
[2017-12-10] MEDS: METOPROLOL TARTRATE 50 MG TAB PO SCH ×2 (09:25→20:30)
[2017-12-10] MEDS: ASPIRIN 81MG TAB.CHEW PO SCH (09:26)
[2017-12-10] MEDS: METHYLPREDNISOLONE SOD SUCC 125MG/2ML VIAL IVP SCH ×2 (09:26→20:30)
[2017-12-10] MEDS: GABAPENTIN 300 MG CAPSULE PO SCH ×3 (09:26→20:29)
[2017-12-10] MEDS: POTASSIUM CHLORIDE 10 MEQ/TAB.SA PO SCH (09:26)
[2017-12-10] MEDS: LEVOFLOXACIN 750 MG/D5W 150 ML 150 ML IV SCH (09:27)
[2017-12-10] MEDS: ENOXAPARIN SODIUM 40 MG/0.4 ML SYRINGE SQ SCH (09:34)
[2017-12-10 11:30] VITALS: BP 117/59
[2017-12-10] MEDS: ACETYLCYSTEINE 20% 200MG/ML 4ML VIAL IH SCH ×2 (13:21→18:56)
[2017-12-10] MEDS ORDERED: ACETYLCYSTEINE 20% 200MG/ML 4ML VIAL PO SCH (14:00)
[2017-12-10] MEDS ORDERED: VANCOMYCIN 1.5 GM in SODIUM CHLORIDE 0.9% 250 ML IV SCH (14:15)
[2017-12-10 15:00] VITALS: BP 113/60
[2017-12-10 20:24] VITALS: BP 127/86
[2017-12-10] MEDS: TRAZODONE HCL 50 MG TAB PO SCH (20:29)
[2017-12-10] MEDS: TAMSULOSIN HCL 0.4 MG CAP.ER.24H PO SCH (20:29)
[2017-12-11 00:24] VITALS: BP 145/79
[2017-12-11] MEDS: IPRATROPIUM/ALBUTEROL SULFATE 3 ML SOLUTION IH SCH ×6 (02:10→22:04)
[2017-12-11] MEDS: ACETYLCYSTEINE 20% 200MG/ML 4ML VIAL IH SCH ×4 (02:10→17:56)
[2017-12-11 04:24] VITALS: BP 118/88
[2017-12-11 04:48] LABS: BASOPHILS % (AUTO) 0.1 % (0.0-5.0); HEMATOCRIT 37.6 % (42-54); MEAN CORPUSCULAR HEMOGLOBIN 27.3 pg (27.0-33.0); MEAN CORPUSCULAR HGB CONC 32.9 g/dL (32.0-36.0); NEUTROPHILS % (AUTO) 88.9 % (40.0-77.0); PLATELET COUNT (AUTO) 183 K/uL (130-400); RED BLOOD CELL COUNT(AUTO) 4.53 MIL/uL (4.50-6.20); WHITE BLOOD COUNT (AUTO) 16.5 K/uL (4.8-10.8)
[2017-12-11 05:34] LABS: CREATININE 0.7 mg/dL (0.5-1.5); POTASSIUM 4.7 mmol/L (3.5-5.1)
[2017-12-11 07:00] VITALS: BP 121/58
[2017-12-11] MEDS: METOCLOPRAMIDE 10 MG TABLET PO SCH ×3 (07:30→17:21)
[2017-12-11] MEDS: INSULIN HUMULIN R 100 UNIT/ML 3ML SQ SCH ×2 (07:30→16:30)
[2017-12-11] MEDS: SUCRALFATE 1 GM TABLET PO SCH ×3 (07:30→17:21)
[2017-12-11] MEDS: POTASSIUM CHLORIDE 10 MEQ/TAB.SA PO SCH (09:00)
[2017-12-11] MEDS: GABAPENTIN 300 MG CAPSULE PO SCH ×3 (09:00→20:54)
[2017-12-11] MEDS: TERBINAFINE HCL 250 MG PO SCH (09:00)
[2017-12-11] MEDS: CHOLECALCIFEROL PO SCH (09:00)
[2017-12-11] MEDS: MIRABEGRON 25 MG PO SCH (09:00)
[2017-12-11] MEDS: ASPIRIN 81MG TAB.CHEW PO SCH (09:00)
[2017-12-11] MEDS: METOPROLOL TARTRATE 50 MG TAB PO SCH ×2 (09:53→20:54)
[2017-12-11] MEDS: LISINOPRIL 2.5 MG TABLET PO SCH (09:53)
[2017-12-11] MEDS: METHYLPREDNISOLONE SOD SUCC 125MG/2ML VIAL IVP SCH (09:53)
[2017-12-11] MEDS: ENOXAPARIN SODIUM 40 MG/0.4 ML SYRINGE SQ SCH (09:54)
[2017-12-11] MEDS: LEVOFLOXACIN 750 MG/D5W 150 ML 150 ML IV SCH (09:54)
[2017-12-11] MEDS ORDERED: REGADENOSON 0.4 MG/5 ML PF SYG IVP SCH (10:30)
[2017-12-11 11:11] VITALS: BP 131/67
[2017-12-11] MEDS: VANCOMYCIN 0.75 GM in N.S. 250 ML IV SCH ×2 (12:03→23:03)
[2017-12-11 14:46] LABS: ABG BASE EXCESS 11.4 mmol/L (-2.0-3.0); ABG HCO3 37.5 mmol/L (21.0-28.0); ABG OXYGEN SATURATION 94.2 % (95.0-99.0); ABG PCO2 54 mmHg (35-48)
[2017-12-11 15:34] VITALS: BP 114/64
[2017-12-11 20:00] VITALS: BP 138/61
[2017-12-11] MEDS: TAMSULOSIN HCL 0.4 MG CAP.ER.24H PO SCH (20:54)
[2017-12-12] VITALS: BP 124/56
[2017-12-12] MEDS: IPRATROPIUM/ALBUTEROL SULFATE 3 ML SOLUTION IH SCH ×6 (02:22→21:51)
[2017-12-12] MEDS: ACETYLCYSTEINE 20% 200MG/ML 4ML VIAL IH SCH ×2 (02:22→06:47)
[2017-12-12 04:00] VITALS: BP 122/55
[2017-12-12 04:49] LABS: MEAN CORPUSCULAR HEMOGLOBIN 27.9 pg (27.0-33.0); MEAN CORPUSCULAR HGB CONC 33.7 g/dL (32.0-36.0); MEAN CORPUSCULAR VOLUME 82.8 fL (79-99); PLATELET COUNT (AUTO) 209 K/uL (130-400); RED BLOOD CELL COUNT(AUTO) 4.34 MIL/uL (4.50-6.20); RED CELL DISTRIBUTION WIDTH 14.2 % (11.0-15.5); WHITE BLOOD COUNT (AUTO) 12.1 K/uL (4.8-10.8)
[2017-12-12 04:55] LABS: CREATININE 0.8 mg/dL (0.5-1.5)
[2017-12-12] MEDS: INSULIN HUMULIN R 100 UNIT/ML 3ML SQ SCH ×2 (05:56→16:30)
[2017-12-12] MEDS: SUCRALFATE 1 GM TABLET PO SCH ×3 (06:45→17:11)
[2017-12-12] MEDS: METOCLOPRAMIDE 10 MG TABLET PO SCH ×3 (06:45→17:11)
[2017-12-12 07:30] VITALS: BP 108/67
[2017-12-12] MEDS: TERBINAFINE HCL 250 MG PO SCH (09:00)
[2017-12-12] MEDS ORDERED: PREDNISONE 20 MG TABLET PO SCH (09:00)
[2017-12-12] MEDS: MIRABEGRON 25 MG PO SCH (09:00)
[2017-12-12] MEDS: CHOLECALCIFEROL PO SCH (09:00)
[2017-12-12] MEDS: LISINOPRIL 2.5 MG TABLET PO SCH ×2 (09:00→09:03)
[2017-12-12] MEDS: ENOXAPARIN SODIUM 40 MG/0.4 ML SYRINGE SQ SCH (09:03)
[2017-12-12] MEDS: LEVOFLOXACIN 750 MG/D5W 150 ML 150 ML IV SCH (09:03)
[2017-12-12] MEDS: METOPROLOL TARTRATE 50 MG TAB PO SCH ×2 (09:04→20:30)
[2017-12-12] MEDS: POTASSIUM CHLORIDE 10 MEQ/TAB.SA PO SCH (09:04)
[2017-12-12] MEDS: GABAPENTIN 300 MG CAPSULE PO SCH ×3 (09:04→20:30)
[2017-12-12] MEDS: PREDNISONE 20 MG TABLET PO SCH (09:04)
[2017-12-12] MEDS: ASPIRIN 81MG TAB.CHEW PO SCH (09:05)
[2017-12-12] MEDS: VANCOMYCIN 1GM+NS 250ML 250 ML IV SCH ×2 (10:52→20:31)
[2017-12-12 11:00] VITALS: BP 107/59
[2017-12-12] MEDS: FUROSEMIDE 20 MG TABLET PO SCH (13:59)
[2017-12-12 16:00] VITALS: BP 140/70
[2017-12-12 19:56] VITALS: BP 102/54
[2017-12-12] MEDS: TAMSULOSIN HCL 0.4 MG CAP.ER.24H PO SCH (20:30)
[2017-12-13] VITALS: BP 101/54
[2017-12-13] MEDS: IPRATROPIUM/ALBUTEROL SULFATE 3 ML SOLUTION IH SCH ×6 (01:42→21:36)
[2017-12-13 04:00] VITALS: BP 116/57
[2017-12-13 04:36] LABS: HEMATOCRIT 33.7 % (42-54); MEAN CORPUSCULAR HEMOGLOBIN 28.9 pg (27.0-33.0); MEAN CORPUSCULAR HGB CONC 35.4 g/dL (32.0-36.0); MEAN CORPUSCULAR VOLUME 81.6 fL (79-99); PLATELET COUNT (AUTO) 210 K/uL (130-400); RED BLOOD CELL COUNT(AUTO) 4.13 MIL/uL (4.50-6.20); RED CELL DISTRIBUTION WIDTH 14.2 % (11.0-15.5); WHITE BLOOD COUNT (AUTO) 9.9 K/uL (4.8-10.8)
[2017-12-13 04:45] LABS: CREATININE 0.7 mg/dL (0.5-1.5); POTASSIUM 3.4 mmol/L (3.5-5.1)
[2017-12-13 05:10] LABS: B-TYPE NATRIURETIC PEPTIDE 799 pg/mL (0-100)
[2017-12-13] MEDS: INSULIN HUMULIN R 100 UNIT/ML 3ML SQ SCH ×2 (06:03→16:30)
[2017-12-13] MEDS: SUCRALFATE 1 GM TABLET PO SCH ×3 (06:04→16:10)
[2017-12-13] MEDS: METOCLOPRAMIDE 10 MG TABLET PO SCH ×3 (06:04→16:10)
[2017-12-13 07:43] VITALS: BP 133/76
[2017-12-13] MEDS ORDERED: LIDOCAINE HCL-MPF 1% 2ML VIAL IVP PRN (08:15)
[2017-12-13] MEDS ORDERED: POTASSIUM CHLORIDE 20MEQ/100ML 100 ML IV PRN (08:15)
[2017-12-13] MEDS ORDERED: POTASSIUM CHLORIDE 10% ELIXIR 20 MEQ/15 ML UDCUP PO PRN (08:15)
[2017-12-13] MEDS: CHOLECALCIFEROL PO SCH (09:00)
[2017-12-13] MEDS: TERBINAFINE HCL 250 MG PO SCH (09:00)
[2017-12-13] MEDS: MIRABEGRON 25 MG PO SCH (09:00)
[2017-12-13] MEDS: VANCOMYCIN 1GM+NS 250ML 250 ML IV SCH (09:22)
[2017-12-13] MEDS: LEVOFLOXACIN 750 MG/D5W 150 ML 150 ML IV SCH (09:23)
[2017-12-13] MEDS: LISINOPRIL 2.5 MG TABLET PO SCH (09:43)
[2017-12-13] MEDS: POTASSIUM CHLORIDE 10 MEQ/TAB.SA PO SCH (09:43)
[2017-12-13] MEDS: ASPIRIN 81MG TAB.CHEW PO SCH (09:43)
[2017-12-13] MEDS: PREDNISONE 20 MG TABLET PO SCH (09:44)
[2017-12-13] MEDS: FUROSEMIDE 20 MG TABLET PO SCH (09:45)
[2017-12-13] MEDS: ENOXAPARIN SODIUM 40 MG/0.4 ML SYRINGE SQ SCH (09:47)
[2017-12-13] MEDS: METOPROLOL TARTRATE 50 MG TAB PO SCH ×2 (09:48→20:17)
[2017-12-13 11:43] VITALS: BP 103/79
[2017-12-13] MEDS: POTASSIUM CHLORIDE 20 MEQ ERTAB PO PRN (12:16)
[2017-12-13] MEDS: GUAIFENESIN-CODEINE 5 ML SYRUP PO PRN ×2 (12:19→20:15)
[2017-12-13 16:25] VITALS: BP 106/51
[2017-12-13 20:08] VITALS: BP 108/55
[2017-12-13] MEDS: TAMSULOSIN HCL 0.4 MG CAP.ER.24H PO SCH (20:15)
[2017-12-13] MEDS: VANCOMYCIN 1.25 GM in SODIUM CHLORIDE 0.9% 250 ML IV SCH (22:01)
[2017-12-14 00:08] VITALS: BP 111/57
[2017-12-14] MEDS: IPRATROPIUM/ALBUTEROL SULFATE 3 ML SOLUTION IH SCH ×3 (01:42→09:28)
[2017-12-14 04:00] VITALS: BP 117/55
[2017-12-14] MEDS: METOCLOPRAMIDE 10 MG TABLET PO SCH ×2 (05:51→09:50)
[2017-12-14] MEDS: SUCRALFATE 1 GM TABLET PO SCH ×2 (05:51→09:50)
[2017-12-14] MEDS: INSULIN HUMULIN R 100 UNIT/ML 3ML SQ SCH (05:52)
[2017-12-14] MEDS: GUAIFENESIN-CODEINE 5 ML SYRUP PO PRN (06:02)
[2017-12-14 08:26] VITALS: BP 108/47
[2017-12-14] MEDS: CHOLECALCIFEROL PO SCH (09:00)
[2017-12-14] MEDS: MIRABEGRON 25 MG PO SCH (09:00)
[2017-12-14] MEDS: TERBINAFINE HCL 250 MG PO SCH (09:00)
[2017-12-14] MEDS: VANCOMYCIN 1.25 GM in SODIUM CHLORIDE 0.9% 250 ML IV SCH (09:45)
[2017-12-14] MEDS: LEVOFLOXACIN 750 MG/D5W 150 ML 150 ML IV SCH (09:45)
[2017-12-14] MEDS: PREDNISONE 20 MG TABLET PO SCH (09:50)
[2017-12-14] MEDS: ASPIRIN 81MG TAB.CHEW PO SCH (09:50)
[2017-12-14] MEDS: FUROSEMIDE 20 MG TABLET PO SCH (09:52)
[2017-12-14] MEDS: POTASSIUM CHLORIDE 10 MEQ/TAB.SA PO SCH (09:53)
[2017-12-14] MEDS: ENOXAPARIN SODIUM 40 MG/0.4 ML SYRINGE SQ SCH (09:57)
[2017-12-14] MEDS: POTASSIUM CHLORIDE 20 MEQ ERTAB PO PRN (10:51)
[2017-12-14] MEDS ORDERED: COMPOUND IV REFRIGERATED 1 EACH IVSOLN MISC PRN (11:30)
[2017-12-14 11:33] VITALS: BP 113/57
== END 2017-12-14 12:40 | disposition home or self-care (01) | DRG 193 ==
LOC: EDH 10:15 → EDHIP 12:20 → 4BH 13:30
PROVIDERS: ADMIT Internal Medicine; ATTEND Internal Medicine
PROC: 5A09357 Assistance with Respiratory Ventilation, Less than 24 Consecutive Hours, Continuous Positive Airway Pressure (ICD-10-PCS; principal; 2017-12-09)
PROC: 5A09357 Assistance with Respiratory Ventilation, Less than 24 Consecutive Hours, Continuous Positive Airway Pressure (ICD-10-PCS; 2017-12-10)
PROC: 5A09357 Assistance with Respiratory Ventilation, Less than 24 Consecutive Hours, Continuous Positive Airway Pressure (ICD-10-PCS; 2017-12-13)
DX: J18.9 Pneumonia, unspecified organism (principal); J96.21 Acute and chronic respiratory failure with hypoxia; J44.1 Chronic obstructive pulmonary disease with (acute) exacerbation; E87.2 Acidosis; I50.42 Chronic combined systolic (congestive) and diastolic (congestive) heart failure; J44.0 Chronic obstructive pulmonary disease with (acute) lower respiratory infection; T46.0X5A Adverse effect of cardiac-stimulant glycosides and drugs of similar action, initial encounter; F17.200 Nicotine dependence, unspecified, uncomplicated; Z99.81 Dependence on supplemental oxygen; F41.9 Anxiety disorder, unspecified; B95.62 Methicillin resistant Staphylococcus aureus infection as the cause of diseases classified elsewhere; D64.9 Anemia, unspecified; E11.65 Type 2 diabetes mellitus with hyperglycemia; E78.5 Hyperlipidemia, unspecified; I11.0 Hypertensive heart disease with heart failure; I25.10 Atherosclerotic heart disease of native coronary artery without angina pectoris; I25.5 Ischemic cardiomyopathy; N40.0 Benign prostatic hyperplasia without lower urinary tract symptoms; I25.2 Old myocardial infarction; Z86.711 Personal history of pulmonary embolism; Z95.1 Presence of aortocoronary bypass graft; Z95.5 Presence of coronary angioplasty implant and graft; Z95.810 Presence of automatic (implantable) cardiac defibrillator
CPT/HCPCS: 36415; 36600; 71045; 78452; 80048; 80053; 80162; 80198; 80202; 82803; 82948; 83880; 84132; 84484; 85025; 85027; 87071; 87205; 93005; 93017; 93306; 94640; 94660; 94664; 94760; 96374; A4606; A9500; J1650; J1815; J1956; J2785; J2930; J3370; J7030; J7608

== ENCOUNTER 2018-03-16 21:05 | Emergency (ER) | payer MEDICARE ==
[~2018-03-16 21:05] MED LIST changes: +ASPI-1197 PO; -CYCL10TA7 PO; +DIGO125T87 PO; -FLUT16H NS; -GABA-318 PO; -IRON1CAP32 PO; +LISI2.5T2 PO; -MAGN400T6 PO; +METO-409 PO; -RIVA15TA PO; -TRAV5DRO OP; +TRAZ-185 PO; -[UNRECOGNIZED DRUG - CODE] PO
[2018-03-16 22:01] LABS: BASOPHILS % (AUTO) 0.4 % (0.0-5.0); EOSINOPHILS % (AUTO) 4.2 % (0.0-8.0); HEMATOCRIT 34.1 % (42-54); LYMPHOCYTES % (AUTO) 17.8 % (21.0-51.0); MEAN CORPUSCULAR HEMOGLOBIN 27.4 pg (27.0-33.0); MEAN CORPUSCULAR HGB CONC 32.9 g/dL (32.0-36.0); MEAN CORPUSCULAR VOLUME 83.4 fL (79-99); NEUTROPHILS % (AUTO) 69.6 % (40.0-77.0); PLATELET COUNT (AUTO) 219 K/uL (130-400); RED BLOOD CELL COUNT(AUTO) 4.09 MIL/uL (4.50-6.20); RED CELL DISTRIBUTION WIDTH 14.7 % (11.0-15.5); WHITE BLOOD COUNT (AUTO) 9.5 K/uL (4.8-10.8)
[2018-03-16 22:15] LABS: CREATININE 0.8 mg/dL (0.5-1.5)
[2018-03-16 22:24] LABS: ALBUMIN 3.3 g/dL (3.5-5.0); BILIRUBIN,TOTAL 0.2 mg/dL (0.2-1.0); TOTAL PROTEIN, SERUM 7.2 g/dL (6.0-8.3)
[2018-03-17] MEDS ORDERED: METHYLPREDNISOLONE SOD SUCC 125MG/2ML VIAL ONE (00:27)
[2018-03-17] MEDS ORDERED: IPRATROPIUM/ALBUTEROL SULFATE 3 ML SOLUTION IH ONE (00:31)
[2018-03-17 00:44] LABS: DIGOXIN 0.54 ng/mL (0.50-2.00)
[2018-03-17] MEDS ORDERED: AZITHROMYCIN 250 MG TABLET PO ONE (01:33)
[2018-03-17 02:05] LABS: THEOPHYLLINE 3.8 mcg/mL (10.0-20.0)
== END 2018-03-17 02:48 | disposition home or self-care (01) ==
LOC: EDH 21:05
DX: J44.1 Chronic obstructive pulmonary disease with (acute) exacerbation (principal); I25.10 Atherosclerotic heart disease of native coronary artery without angina pectoris; I11.0 Hypertensive heart disease with heart failure; I50.9 Heart failure, unspecified; Z86.711 Personal history of pulmonary embolism; Z95.0 Presence of cardiac pacemaker; Z87.891 Personal history of nicotine dependence; Z88.0 Allergy status to penicillin; Z98.890 Other specified postprocedural states
CPT/HCPCS: 36415; 71045; 80053; 80162; 80198; 83880; 84484 ×2; 85025; 87804 ×2; 93005 ×2; 94640; 96374; 99285; J2930

== ENCOUNTER 2018-07-30 12:05 | Day surgery (SDC) | payer MEDICARE ==
[~2018-07-30] VITALS: Ht 167.6 cm; Wt 63.0 kg
[~2018-07-30 12:05] MED LIST changes: -IPRA4AER IH
[2018-07-30 12:40] VITALS: BP 108/55
[2018-07-30 12:55] LABS: BASOPHILS % (AUTO) 0.5 % (0.0-5.0); EOSINOPHILS % (AUTO) 3.9 % (0.0-8.0); HEMATOCRIT 37.9 % (42-54); MEAN CORPUSCULAR HEMOGLOBIN 26.7 pg (27.0-33.0); MEAN CORPUSCULAR HGB CONC 32.3 g/dL (32.0-36.0); MEAN CORPUSCULAR VOLUME 82.9 fL (79-99); MONOCYTES % (AUTO) 6.5 % (3.0-13.0); NEUTROPHILS % (AUTO) 73.1 % (40.0-77.0); PLATELET COUNT (AUTO) 296 K/uL (130-400); RED BLOOD CELL COUNT(AUTO) 4.57 MIL/uL (4.50-6.20); RED CELL DISTRIBUTION WIDTH 15.1 % (11.0-15.5); WHITE BLOOD COUNT (AUTO) 12.1 K/uL (4.8-10.8)
[2018-07-30 13:08] LABS: ALBUMIN 3.4 g/dL (3.5-5.0); BILIRUBIN,TOTAL 0.4 mg/dL (0.2-1.0); CREATININE 0.7 mg/dL (0.5-1.5); POTASSIUM 4.4 mmol/L (3.5-5.1); TOTAL PROTEIN, SERUM 7.9 g/dL (6.0-8.3)
[2018-07-30 13:09] LABS: INR 1.07 (0.85-1.15); PROTHROMBIN TIME 11.2 SEC (9.6-11.6)
[2018-07-30 14:00] VITALS: BP 120/63
[2018-07-30] MEDS ORDERED: SODIUM CHLORIDE 0.9% 1000ML 1,000 ML IV ONE (14:14)
[2018-07-30 15:00] VITALS: BP 125/61
[2018-07-30 16:00] VITALS: BP 120/66
[2018-07-30] MEDS ORDERED: IODIXANOL 320 MG/ML 100 ML VIAL ONE (16:19)
[2018-07-30] MEDS ORDERED: LIDOCAINE HCL 1% MDV 50ML VIAL ONE (16:20)
--- NOTE | 2018-07-30 16:20 | NUR ---
TRANSPORTED TO [facility] VIA STRETCHER IN STABLE CONDITION WITH PORTABLE O2 TANK BY ZANE ROSEN
[2018-07-30 17:20] VITALS: BP 124/70
== END 2018-07-30 17:58 | disposition home or self-care (01) ==
LOC: DAH 12:05
PROVIDERS: ATTEND Internal Medicine Gastroenterology
DX: K80.20 Calculus of gallbladder without cholecystitis without obstruction (principal); Z79.82 Long term (current) use of aspirin; Z79.899 Other long term (current) drug therapy; J44.9 Chronic obstructive pulmonary disease, unspecified; I50.9 Heart failure, unspecified; Z95.0 Presence of cardiac pacemaker
CPT/HCPCS: 36415; 47536; 80053; 82248; 85025; 85610; 85730; A4606; C1729; J1644; J3490; J7030; Q9967

== ENCOUNTER 2018-08-12 18:16 | Emergency (ER) | payer MEDICARE ==
[2018-08-13] MEDS ORDERED: ASPI-1181 PO (14:38)
[2018-08-13] MEDS ORDERED: DILT120T15 PO (14:38)
[2018-08-13] MEDS ORDERED: CARV3.1262 PO (14:38)
== END 2018-08-12 21:02 | disposition home or self-care (01) ==
LOC: EDH 18:16
DX: T83.098A Other mechanical complication of other urinary catheter, initial encounter (principal); Y84.8 Other medical procedures as the cause of abnormal reaction of the patient, or of later complication, without mention of misadventure at the time of the procedure; Y92.89 Other specified places as the place of occurrence of the external cause
CPT/HCPCS: 99281

== ENCOUNTER 2018-08-13 09:00 | Observation (INO) | payer MEDICARE ==
[2018-08-13] VITALS (12 sets, daily range): BP systolic 114–156; BP diastolic 63–86
[~2018-08-13] VITALS: Ht 165.1 cm; Wt 61.6 kg
[2018-08-13] MEDS ORDERED: 1/2 NORMAL SALINE 1,000 ML IV SCH (11:00)
[2018-08-13 13:27] LABS: INR 1.06 (0.85-1.15); PARTIAL THROMBOPLASTIN TIME 26.3 SEC (26.3-35.5); PROTHROMBIN TIME 11.1 SEC (9.6-11.6)
[2018-08-13] MEDS ORDERED: ASPI-1181 PO (14:38)
[2018-08-13] MEDS ORDERED: CARV3.1262 PO (14:38)
[2018-08-13] MEDS ORDERED: DILT120T15 PO (14:38)
[2018-08-13] MEDS ORDERED: SODIUM BICARB 50MEQ 50ML VIAL ONE (16:58)
[2018-08-13] MEDS ORDERED: LIDOCAINE HCL 1% MDV 50ML VIAL ONE (16:58)
[2018-08-13] MEDS ORDERED: IODIXANOL 320 MG/ML 100 ML VIAL ONE (17:08)
--- NOTE | 2018-08-14 03:40 | NUR ---
TELEMETRY- PER LOS ABAD LVN, RECEIVED CALL FROM CLASSIFIED COPY CONTROL CLERK Luan INFORMING TELEMETRY DC'D ON PATIENT.
[2018-08-14 07:10] VITALS: BP 112/58
== END 2018-08-14 11:00 | disposition home or self-care (01) ==
LOC: EDH 09:00 → EDHIP 10:07 → 3BH 13:41
PROVIDERS: ADMIT Internal Medicine; ATTEND Internal Medicine
DX: Z48.03 Encounter for change or removal of drains (principal); I50.9 Heart failure, unspecified; J44.9 Chronic obstructive pulmonary disease, unspecified; Z95.0 Presence of cardiac pacemaker; Z79.899 Other long term (current) drug therapy
CPT/HCPCS: 36415; 47490; 82948 ×2; 85610; 85730; 99284; C1729 ×2; C1769 ×2; G0378 ×25; J1644; J3490; Q9967

== ENCOUNTER 2018-09-03 21:21 | Emergency (ER) | payer MEDICARE ==
[~2018-09-03 21:21] MED LIST changes: +ASPI-1181 PO; -ASPI-1197 PO; +CARV3.1262 PO; -CHOLECALCIFEROL PO; +DILT120T15 PO; -LISI2.5T2 PO; -METO-409 PO; -METO10TA3 PO; -TERB250T51 PO
[2018-09-03] MEDS ORDERED: METHYLPREDNISOLONE SOD SUCC 125MG/2ML VIAL ONE (21:54)
[2018-09-03 21:58] LABS: BASOPHILS % (AUTO) 0.5 % (0.0-5.0); EOSINOPHILS % (AUTO) 2.7 % (0.0-8.0); HEMATOCRIT 35.3 % (42-54); LYMPHOCYTES % (AUTO) 18.4 % (21.0-51.0); MEAN CORPUSCULAR HEMOGLOBIN 26.2 pg (27.0-33.0); MEAN CORPUSCULAR VOLUME 79.5 fL (79-99); MONOCYTES % (AUTO) 7.2 % (3.0-13.0); NEUTROPHILS % (AUTO) 71.2 % (40.0-77.0); PLATELET COUNT (AUTO) 215 K/uL (130-400); RED BLOOD CELL COUNT(AUTO) 4.44 MIL/uL (4.50-6.20); RED CELL DISTRIBUTION WIDTH 15.1 % (11.0-15.5); WHITE BLOOD COUNT (AUTO) 8.8 K/uL (4.8-10.8)
[2018-09-03] MEDS ORDERED: IPRATROPIUM/ALBUTEROL SULFATE 3 ML SOLUTION IH ONE ×2 (21:58→23:06)
[2018-09-03 22:06] LABS: CARBON DIOXIDE 30 mmol/L (21-32); CHLORIDE 102 mmol/L (101-111); CREATININE 0.8 mg/dL (0.5-1.5); GLOMERULAR FILTR. RATE CALC 100 mL/min (>60); GLUCOSE,RANDOM 119 mg/dL (70-105); POTASSIUM 4.1 mmol/L (3.5-5.1); SODIUM SERUM 140 mmol/L (136-145); UREA NITROGEN, BLOOD 16 mg/dL (7-18)
[2018-09-03 22:09] LABS: INR 1.07 (0.85-1.15); PROTHROMBIN TIME 11.2 SEC (9.6-11.6)
[2018-09-03 22:21] LABS: ALANINE AMINOTRANSFERASE 12 U/L (12-78); ALBUMIN 3.5 g/dL (3.5-5.0); ASPARTATE AMINOTRANSFERASE 15 U/L (10-37); BILIRUBIN,TOTAL 0.1 mg/dL (0.2-1.0); CREATINE KINASE, TOTAL 58 U/L (21-232); MYOGLOBIN 38 ng/mL (10-92); TROPONIN I < 0.04 ng/mL (0.00-0.06)
== END 2018-09-03 23:51 | disposition home or self-care (01) ==
LOC: EDH 21:21
DX: J18.9 Pneumonia, unspecified organism (principal); J44.1 Chronic obstructive pulmonary disease with (acute) exacerbation; I11.0 Hypertensive heart disease with heart failure; I50.9 Heart failure, unspecified; E11.9 Type 2 diabetes mellitus without complications; I25.10 Atherosclerotic heart disease of native coronary artery without angina pectoris; Z88.0 Allergy status to penicillin; Z86.711 Personal history of pulmonary embolism
CPT/HCPCS: 36415; 71045; 80053; 80162; 82550; 83605; 83874; 83880; 84484; 85025; 85610; 85730; 87040 ×2; 87804 ×2; 93005; 94640 ×2; 96374; 99291; J2930

== ENCOUNTER 2018-09-08 07:48 | Emergency (ER) | payer MEDICARE | END 2018-09-08 11:28 | disposition home or self-care (01) | LOC: EDH 07:48 | DX: Z46.59 Encounter for fitting and adjustment of other gastrointestinal appliance and device (principal); J43.9 Emphysema, unspecified; I11.0 Hypertensive heart disease with heart failure; I50.9 Heart failure, unspecified; E11.9 Type 2 diabetes mellitus without complications; I25.10 Atherosclerotic heart disease of native coronary artery without angina pectoris; Z86.711 Personal history of pulmonary embolism | CPT/HCPCS: 76705 ==

== ENCOUNTER 2018-12-02 08:24 | Observation (INO) | payer MEDICARE ==
[~2018-12-02] VITALS: Ht 170.2 cm; Wt 62.4 kg
[2018-12-02] MEDS ORDERED: IPRATROPIUM/ALBUTEROL SULFATE 3 ML SOLUTION IH ONE ×3 (08:41→13:32)
[2018-12-02] MEDS ORDERED: DEXAMETHASONE SOD PHOSPHATE 10MG/ML 1ML VIAL ONE (08:54)
[2018-12-02 08:55] LABS: BASOPHILS % (AUTO) 0.5 % (0.0-5.0); EOSINOPHILS % (AUTO) 4.2 % (0.0-8.0); HEMATOCRIT 39.8 % (42-54); MEAN CORPUSCULAR HEMOGLOBIN 27.1 pg (27.0-33.0); MEAN CORPUSCULAR HGB CONC 33.2 g/dL (32.0-36.0); MEAN CORPUSCULAR VOLUME 81.7 fL (79-99); MONOCYTES % (AUTO) 7.4 % (3.0-13.0); NEUTROPHILS % (AUTO) 67.9 % (40.0-77.0); PLATELET COUNT (AUTO) 263 K/uL (130-400); RED BLOOD CELL COUNT(AUTO) 4.88 MIL/uL (4.50-6.20); RED CELL DISTRIBUTION WIDTH 16.3 % (11.0-15.5); WHITE BLOOD COUNT (AUTO) 7.8 K/uL (4.8-10.8)
[2018-12-02 09:03] LABS: CREATININE 0.8 mg/dL (0.5-1.5); POTASSIUM 3.9 mmol/L (3.5-5.1)
[2018-12-02 09:08] LABS: ALBUMIN 3.5 g/dL (3.5-5.0); BILIRUBIN,TOTAL 0.3 mg/dL (0.2-1.0); TOTAL PROTEIN, SERUM 7.5 g/dL (6.0-8.3)
[2018-12-02 09:20] LABS: B-TYPE NATRIURETIC PEPTIDE 360 pg/mL (0-100)
[2018-12-02 09:24] LABS: INR 1.03 (0.85-1.15); PARTIAL THROMBOPLASTIN TIME 27.5 SEC (26.3-35.5); PROTHROMBIN TIME 10.8 SEC (9.6-11.6)
[2018-12-02] MEDS ORDERED: LEVOFLOXACIN 750 MG/D5W 150 ML 150 ML ONE (10:30)
[2018-12-02] MEDS ORDERED: DOXYCYCLINE HYCLATE 100 MG TABLET PO ONE (11:01)
[2018-12-02] MEDS: METHYLPREDNISOLONE SOD SUCC 125MG/2ML VIAL IVP SCH ×2 (12:00→20:24)
[2018-12-02] MEDS: IPRATROPIUM/ALBUTEROL SULFATE 3 ML SOLUTION IH SCH ×3 (13:53→22:13)
[2018-12-02 14:40] VITALS: BP 130/73
--- NOTE | 2018-12-02 14:48 | NUR ---
INITIAL MET WITH PT ALONE, AAOX3, NO DISTRESS LIVES W MICHELL RAND, PROVIDER ; RENTS A ROOM IN THE HOUSE; HAVE HAD HER A PROVIDER FOR MANY YEARS STRESSES THAT THIS LADIY IS A PROVIDER, NOT A SPOUSE OR A GRILFRIEND HAS OXYGEN, NEBULIZER, W/CHAIR, WKR, SHOWER CHAIR STATES HAS A DAUGHTER, BUT DOES NOT WANT HER NUMBER ON THE HOSPITAL FACESHEET; STATES IS ALSO CALLED MICHELL REMIND PT THAT WHEN HE WAS HERE LAST TIME, THERE WERE A LOT OF PROBLEM WITH POA AND WHO COULD SPEAK FO NUNO MARTINEZ HE WAS VENTILATED. OFFERED HIM THE OPPORTUNITY TO DO A POA THIS TIME. HE STATES THAT MAYBE HIS DRDex HAD A FORM LIKE THAT? ADIVSED HIM WE WOULDHAVE INSULATOR HELPER CHECK INTO IT. CM TO FOLLOW DEPENDING OF MD RECOMMENDATION Addendum: 12/02/18 at 1511 by SWETHA GONZALEZ RN CM Amended: Links added. Addendum: 12/03/18 at 1055 by SWETHA GONZALEZ RN CM TO CLARIFY, PT WANTED HIS PROVIDER TO BE HIS MPOA ---*NOT HIS DAUGHTER*---
[2018-12-02 15:13] LABS: APPEARANCE,URINE Clear (CLEAR); BILIRUBIN,URINE Negative (NEGATIVE); COLOR,URINE Yellow (YELLOW); GLUCOSE, URINE (UA) Negative (NEGATIVE); KETONES,URINE Negative (NEGATIVE); LEUKOCYTE ESTERASE ,URINE Trace (NEGATIVE); NITRATE,URINE Negative (NEGATIVE); OCCULT BLOOD,URINE Negative (NEGATIVE); PROTEIN,URINE Negative (NEGATIVE)
[2018-12-02] MEDS ORDERED: TRAMADOL HCL 50 MG TABLET PO PRN (15:15)
[2018-12-02 15:45] LABS: RBC,URINE 0-1 /HPF (0-1)
[2018-12-02 15:46] LABS: BACTERIA,URINE Rare /HPF (None Seen); SQUAMOUS EPITHELIAL CELL,UR Few /HPF (0-2)
--- NOTE | 2018-12-02 16:00 | NUR ---
DR. MACARIO AWARE OF PT STATUS AND TELEMETRY [facility]
[2018-12-02 16:30] VITALS: BP 127/68
[2018-12-02] MEDS: SUCRALFATE 1 GM TABLET PO SCH (17:25)
[2018-12-02] MEDS: DIGOXIN 125 MCG TABLET PO SCH (17:26)
--- NOTE | 2018-12-02 18:35 | NUR ---
DR. MACARIO PAGETomasz PER TELEMONITORING PT HAD 12 BEEPS OF V.TACH PT ASYPMTOMATIC DENIES SOB OR CHEST PAIN PAGER ANSWERING SERVICES , STATED NIKOLAY JOSE IS MOUNTAIN OR GLACIER GUIDE
--- NOTE | 2018-12-02 19:00 | NUR ---
SYSTEMS ADMIN CALLED BACK AWARE OF PT'S EKG SUREKHA AGUILERA FOR 12 BEETS STATED JUST TO MONITOR AND DO A BNP DEBI
[2018-12-02] MEDS: BUDESONIDE 0.5 MG/2 ML INH IH SCH (19:26)
[2018-12-02 19:30] VITALS: BP 124/64
[2018-12-02] MEDS: TRAZODONE HCL 50 MG TAB PO SCH (20:24)
[2018-12-02] MEDS: TAMSULOSIN HCL 0.4 MG CAP.ER.24H PO SCH (20:25)
[2018-12-02] MEDS: CARVEDILOL 3.125 MG TABLET PO SCH (20:25)
[2018-12-02] MEDS: DOXYCYCLINE HYCLATE 100 MG TABLET PO SCH (20:25)
[2018-12-02] MEDS ORDERED: THEOPHYLLINE ANHYDROUS 100 MG PO SCH (21:00)
[2018-12-02] MEDS ORDERED: THEOPHYLLINE ANHYDROUS 400 MG PO SCH (21:00)
[2018-12-02 23:20] VITALS: BP 126/64
[2018-12-03] MEDS: IPRATROPIUM/ALBUTEROL SULFATE 3 ML SOLUTION IH SCH ×6 (02:41→22:35)
[2018-12-03 03:40] VITALS: BP 128/69
[2018-12-03] MEDS: METHYLPREDNISOLONE SOD SUCC 125MG/2ML VIAL IVP SCH ×3 (04:11→21:09)
[2018-12-03 05:39] LABS: HEMATOCRIT 36.1 % (42-54); MEAN CORPUSCULAR HEMOGLOBIN 26.5 pg (27.0-33.0); MEAN CORPUSCULAR HGB CONC 32.8 g/dL (32.0-36.0); MEAN CORPUSCULAR VOLUME 80.8 fL (79-99); PLATELET COUNT (AUTO) 293 K/uL (130-400); RED BLOOD CELL COUNT(AUTO) 4.48 MIL/uL (4.50-6.20); RED CELL DISTRIBUTION WIDTH 16.3 % (11.0-15.5); WHITE BLOOD COUNT (AUTO) 9.8 K/uL (4.8-10.8)
[2018-12-03 05:47] LABS: CREATININE 0.8 mg/dL (0.5-1.5); POTASSIUM 4.4 mmol/L (3.5-5.1)
[2018-12-03 05:49] LABS: MAGNESIUM 2.1 mg/dL (1.80-2.40); THEOPHYLLINE 7.2 mcg/mL (10.0-20.0)
[2018-12-03 05:52] LABS: DIGOXIN 0.46 ng/mL (0.50-2.00)
[2018-12-03] MEDS: BUDESONIDE 0.5 MG/2 ML INH IH SCH ×2 (06:17→18:43)
[2018-12-03 06:19] LABS: B-TYPE NATRIURETIC PEPTIDE 445 pg/mL (0-100)
[2018-12-03] MEDS: SUCRALFATE 1 GM TABLET PO SCH ×3 (06:30→17:31)
[2018-12-03 08:16] VITALS: BP 126/64
[2018-12-03] MEDS: ASPIRIN 81 MG EC TAB PO SCH (08:42)
[2018-12-03] MEDS: FUROSEMIDE 20 MG TABLET PO SCH (08:42)
[2018-12-03] MEDS: POTASSIUM CHLORIDE 10 MEQ/TAB.SA PO SCH (08:42)
[2018-12-03] MEDS: DOXYCYCLINE HYCLATE 100 MG TABLET PO SCH ×2 (08:42→21:10)
[2018-12-03] MEDS: CARVEDILOL 3.125 MG TABLET PO SCH ×2 (08:43→21:10)
[2018-12-03] MEDS: DILTIAZEM HCL 120 MG CAP.SR.24H PO SCH (08:43)
[2018-12-03] MEDS: ENOXAPARIN SODIUM 40 MG/0.4 ML SYRINGE SQ SCH (08:47)
[2018-12-03] MEDS: **HM**(Mirabegron (Myrbetriq) 25 MG PO SCH (11:15)
[2018-12-03 11:46] VITALS: BP 108/71
--- NOTE | 2018-12-03 13:15 | NUR ---
Patient awake, alert, oriented x3. Denies pain at the moment, no SOB observed. Diminished breath sounds to all lobes on auscultation. Remains on oxygen via nasal cannula.
--- NOTE | 2018-12-03 14:40 | NUR ---
Dr Reardon visited with pt, no new orders given
[2018-12-03 16:32] VITALS: BP 115/61
[2018-12-03] MEDS: DIGOXIN 125 MCG TABLET PO SCH (17:31)
[2018-12-03 20:00] VITALS: BP 105/41
[2018-12-03] MEDS ORDERED: THEOPHYLLINE ANHYDROUS 100 MG CAP.ER.24H PO SCH (21:00)
[2018-12-03] MEDS: TRAZODONE HCL 50 MG TAB PO SCH (21:09)
[2018-12-03] MEDS: TAMSULOSIN HCL 0.4 MG CAP.ER.24H PO SCH (21:10)
[2018-12-03 23:18] VITALS: BP 116/52
[2018-12-04] MEDS: IPRATROPIUM/ALBUTEROL SULFATE 3 ML SOLUTION IH SCH ×4 (01:33→14:36)
[2018-12-04 03:50] VITALS: BP 114/48
[2018-12-04] MEDS: METHYLPREDNISOLONE SOD SUCC 125MG/2ML VIAL IVP SCH ×2 (04:22→12:52)
[2018-12-04] MEDS: BUDESONIDE 0.5 MG/2 ML INH IH SCH (06:29)
[2018-12-04] MEDS: SUCRALFATE 1 GM TABLET PO SCH ×3 (06:50→16:50)
[2018-12-04 08:09] VITALS: BP 110/57
[2018-12-04] MEDS: **HM**(Mirabegron (Myrbetriq) 25 MG PO SCH (09:00)
[2018-12-04] MEDS: CARVEDILOL 3.125 MG TABLET PO SCH (09:57)
[2018-12-04] MEDS: DILTIAZEM HCL 120 MG CAP.SR.24H PO SCH (09:57)
[2018-12-04] MEDS: ASPIRIN 81 MG EC TAB PO SCH (09:57)
[2018-12-04] MEDS: POTASSIUM CHLORIDE 10 MEQ/TAB.SA PO SCH (09:57)
[2018-12-04] MEDS: DOXYCYCLINE HYCLATE 100 MG TABLET PO SCH (09:57)
[2018-12-04] MEDS: ENOXAPARIN SODIUM 40 MG/0.4 ML SYRINGE SQ SCH (09:58)
[2018-12-04] MEDS: FUROSEMIDE 20 MG TABLET PO SCH (09:58)
[2018-12-04 11:37] VITALS: BP 106/48
--- NOTE | 2018-12-04 11:43 | NUR ---
SPOKE TO MICHELE KO PLAN OF CARE ADVISED BY FRANSISCO BAUTISTA THAT PT WOULD BE DISCHARGED TODAY, NOW AT BASELINE. .. Addendum: 12/04/18 at 1756 by SWETHA GONZALEZ RN CM Amended: Links added.
[2018-12-04] MEDS: DIGOXIN 125 MCG TABLET PO SCH (12:58)
[2018-12-04] MEDS ORDERED: THEO400T3 PO (14:21)
[2018-12-04] MEDS ORDERED: DOXY100T2 PO (14:21)
[2018-12-04] MEDS ORDERED: PRED20TA3 PO (14:21)
[2018-12-04 16:34] VITALS: BP 113/60
== END 2018-12-04 19:10 | disposition home or self-care (01) ==
LOC: EDH 08:24 → EDHIP 10:50 → 4AH 14:10
PROVIDERS: ADMIT Internal Medicine Critical Care Medicine; ATTEND Internal Medicine Critical Care Medicine
DX: J96.21 Acute and chronic respiratory failure with hypoxia (principal); I48.91 Unspecified atrial fibrillation; I11.0 Hypertensive heart disease with heart failure; I50.22 Chronic systolic (congestive) heart failure; E11.9 Type 2 diabetes mellitus without complications; I25.10 Atherosclerotic heart disease of native coronary artery without angina pectoris; J44.1 Chronic obstructive pulmonary disease with (acute) exacerbation; N40.0 Benign prostatic hyperplasia without lower urinary tract symptoms; E87.6 Hypokalemia; Z87.891 Personal history of nicotine dependence; Z90.49 Acquired absence of other specified parts of digestive tract; Z99.81 Dependence on supplemental oxygen
CPT/HCPCS: 36415 ×2; 71045; 80048; 80053; 80162; 80198; 81001; 82948 ×9; 83605; 83735; 83880 ×2; 84484; 85025; 85027; 85610; 85730; 87040 ×2; 93005; 94640 ×21; 94664; 96372 ×2; 96374; 96376 ×2; 99284; G0378 ×55; J1100; J1650 ×2; J1956; J2930 ×6

== ENCOUNTER 2018-12-29 09:52 | Emergency (ER) | payer MEDICARE ==
[~2018-12-29 09:52] MED LIST changes: +DOXY100T2 PO; +PRED20TA3 PO
[2018-12-29] MEDS ORDERED: IPRATROPIUM/ALBUTEROL SULFATE 3 ML SOLUTION IH ONE (10:23)
[2018-12-29] MEDS ORDERED: METHYLPREDNISOLONE SOD SUCC 125MG/2ML VIAL ONE (10:29)
[2018-12-29 10:31] LABS: BASOPHILS % (AUTO) 0.9 % (0.0-5.0); EOSINOPHILS % (AUTO) 4.4 % (0.0-8.0); HEMATOCRIT 35.5 % (42-54); LYMPHOCYTES % (AUTO) 20.3 % (21.0-51.0); MEAN CORPUSCULAR HEMOGLOBIN 27.4 pg (27.0-33.0); MEAN CORPUSCULAR HGB CONC 33.3 g/dL (32.0-36.0); MEAN CORPUSCULAR VOLUME 82.4 fL (79-99); MONOCYTES % (AUTO) 6.9 % (3.0-13.0); NEUTROPHILS % (AUTO) 67.5 % (40.0-77.0); PLATELET COUNT (AUTO) 296 K/uL (130-400); RED BLOOD CELL COUNT(AUTO) 4.31 MIL/uL (4.50-6.20); RED CELL DISTRIBUTION WIDTH 16.6 % (11.0-15.5)
[2018-12-29 10:39] LABS: CREATININE 0.7 mg/dL (0.5-1.5); POTASSIUM 3.7 mmol/L (3.5-5.1)
[2018-12-29 10:44] LABS: ALBUMIN 2.9 g/dL (3.5-5.0); BILIRUBIN,DIRECT 0.1 mg/dL (0.0-0.3); BILIRUBIN,TOTAL 0.1 mg/dL (0.2-1.0); TOTAL PROTEIN, SERUM 6.4 g/dL (6.0-8.3)
[2018-12-29 10:54] LABS: B-TYPE NATRIURETIC PEPTIDE 339 pg/mL (0-100)
[2018-12-29 11:00] LABS: ABG BASE EXCESS 5.5 mmol/L (-2.0-3.0); ABG HCO3 31.4 mmol/L (21.0-28.0); ABG OXYGEN SATURATION 98.5 % (95.0-99.0); ABG PCO2 50 mmHg (35-48)
== END 2018-12-29 14:15 | disposition home or self-care (01) ==
LOC: EDH 09:52
DX: J44.1 Chronic obstructive pulmonary disease with (acute) exacerbation (principal); E11.9 Type 2 diabetes mellitus without complications; I11.0 Hypertensive heart disease with heart failure; I50.9 Heart failure, unspecified; I25.10 Atherosclerotic heart disease of native coronary artery without angina pectoris; Z86.711 Personal history of pulmonary embolism; Z88.0 Allergy status to penicillin; Z87.891 Personal history of nicotine dependence
CPT/HCPCS: 36415; 36600; 71250; 80048; 80076; 82550; 82803; 83880; 84484; 85025; 87804 ×2; 93005; 94640; 96374; 99285; J2930

== ENCOUNTER 2019-01-26 08:02 | Emergency (ER) | payer MEDICARE ==
[2019-01-26] MEDS ORDERED: METHYLPREDNISOLONE SOD SUCC 125MG/2ML VIAL ONE (08:40)
[2019-01-26 08:46] LABS: BASOPHILS % (AUTO) 0.4 % (0.0-5.0); EOSINOPHILS % (AUTO) 6.5 % (0.0-8.0); HEMATOCRIT 39.4 % (42-54); MEAN CORPUSCULAR HEMOGLOBIN 27.5 pg (27.0-33.0); MEAN CORPUSCULAR HGB CONC 33.4 g/dL (32.0-36.0); MEAN CORPUSCULAR VOLUME 82.2 fL (79-99); MONOCYTES % (AUTO) 7.3 % (3.0-13.0); NEUTROPHILS % (AUTO) 61.8 % (40.0-77.0); PLATELET COUNT (AUTO) 257 K/uL (130-400); RED BLOOD CELL COUNT(AUTO) 4.79 MIL/uL (4.50-6.20); RED CELL DISTRIBUTION WIDTH 16.4 % (11.0-15.5); WHITE BLOOD COUNT (AUTO) 8.7 K/uL (4.8-10.8)
[2019-01-26] MEDS ORDERED: IPRATROPIUM/ALBUTEROL SULFATE 3 ML SOLUTION IH ONE (08:49)
[2019-01-26 08:57] LABS: CREATININE 0.9 mg/dL (0.5-1.5); POTASSIUM 3.7 mmol/L (3.5-5.1)
[2019-01-26 09:00] LABS: INR 1.03 (0.85-1.15); PROTHROMBIN TIME 10.8 SEC (9.6-11.6)
[2019-01-26 09:02] LABS: ALBUMIN 3.4 g/dL (3.5-5.0); BILIRUBIN,TOTAL 0.3 mg/dL (0.2-1.0); TOTAL PROTEIN, SERUM 7.1 g/dL (6.0-8.3)
[2019-01-26 09:08] LABS: ABG BASE EXCESS 3.1 mmol/L (-2.0-3.0); ABG HCO3 27.9 mmol/L (21.0-28.0); ABG OXYGEN SATURATION 97.4 % (95.0-99.0); ABG PCO2 43 mmHg (35-48)
[2019-01-26 09:36] LABS: B-TYPE NATRIURETIC PEPTIDE 395 pg/mL (0-100)
[2019-01-26] MEDS ORDERED: ALBUTEROL SULFATE 0.083% 2.5 MG/3 ML INH IH ONE (10:41)
== END 2019-01-26 11:46 | disposition home or self-care (01) ==
LOC: EDH 08:02
DX: J44.1 Chronic obstructive pulmonary disease with (acute) exacerbation (principal); E11.9 Type 2 diabetes mellitus without complications; I11.0 Hypertensive heart disease with heart failure; I50.9 Heart failure, unspecified; I25.10 Atherosclerotic heart disease of native coronary artery without angina pectoris; Z86.711 Personal history of pulmonary embolism; Z88.0 Allergy status to penicillin; Z87.891 Personal history of nicotine dependence
CPT/HCPCS: 36415; 36600; 71045; 80053; 82550; 82803; 83880; 84484; 85025; 85610; 85730; 93005; 94640 ×2; 96374; 99291; J2930

== ENCOUNTER 2019-02-28 16:06 | Emergency (ER) | payer MEDICARE ==
[2019-02-28] MEDS ORDERED: DEXAMETHASONE SOD PHOSPHATE 10MG/ML 1ML VIAL ONE (16:45)
[2019-02-28 16:46] LABS: BASOPHILS % (AUTO) 1.3 % (0.0-5.0); EOSINOPHILS % (AUTO) 3.9 % (0.0-8.0); HEMATOCRIT 35.9 % (42-54); LYMPHOCYTES % (AUTO) 17.2 % (21.0-51.0); MEAN CORPUSCULAR HEMOGLOBIN 28.6 pg (27.0-33.0); MEAN CORPUSCULAR HGB CONC 33.9 g/dL (32.0-36.0); MEAN CORPUSCULAR VOLUME 84.3 fL (79-99); MONOCYTES % (AUTO) 7.1 % (3.0-13.0); NEUTROPHILS % (AUTO) 70.5 % (40.0-77.0); NUCLEATED RED BLOOD CELLS 0.1 % (0.0-0.19); PLATELET COUNT (AUTO) 263 K/uL (130-400); RED BLOOD CELL COUNT(AUTO) 4.26 MIL/uL (4.50-6.20); WHITE BLOOD COUNT (AUTO) 10.2 K/uL (4.8-10.8)
[2019-02-28] MEDS ORDERED: IPRATROPIUM/ALBUTEROL SULFATE 3 ML SOLUTION IH ONE ×3 (16:55)
[2019-02-28 17:10] LABS: CREATININE 0.8 mg/dL (0.5-1.5); POTASSIUM 3.9 mmol/L (3.5-5.1)
[2019-02-28 17:14] LABS: BILIRUBIN,TOTAL 0.2 mg/dL (0.2-1.0); TOTAL PROTEIN, SERUM 6.7 g/dL (6.0-8.3)
== END 2019-02-28 18:10 | disposition home or self-care (01) ==
LOC: EDH 16:06
DX: J44.1 Chronic obstructive pulmonary disease with (acute) exacerbation (principal); I11.0 Hypertensive heart disease with heart failure; I50.9 Heart failure, unspecified; E11.9 Type 2 diabetes mellitus without complications; Z95.0 Presence of cardiac pacemaker; Z88.0 Allergy status to penicillin
CPT/HCPCS: 36415; 71045; 80053; 83880; 84484; 85025; 93005; 94640 ×3; 96374; 99285; J1100

== ENCOUNTER 2019-03-24 09:54 | Inpatient (IN) | payer MEDICARE ==
[~2019-03-24] VITALS: Ht 170.2 cm; Wt 65.6 kg
[2019-03-24 10:41] LABS: BASOPHILS % (AUTO) 0.6 % (0.0-5.0); EOSINOPHILS % (AUTO) 3.7 % (0.0-8.0); HEMATOCRIT 38.3 % (42-54); MEAN CORPUSCULAR HEMOGLOBIN 28.5 pg (27.0-33.0); MEAN CORPUSCULAR HGB CONC 33.7 g/dL (32.0-36.0); MEAN CORPUSCULAR VOLUME 84.7 fL (79-99); MONOCYTES % (AUTO) 7.8 % (3.0-13.0); NEUTROPHILS % (AUTO) 67.9 % (40.0-77.0); PLATELET COUNT (AUTO) 265 K/uL (130-400); RED BLOOD CELL COUNT(AUTO) 4.52 MIL/uL (4.50-6.20); RED CELL DISTRIBUTION WIDTH 15.3 % (11.0-15.5); WHITE BLOOD COUNT (AUTO) 10.4 K/uL (4.8-10.8)
[2019-03-24 10:56] LABS: CREATININE 0.9 mg/dL (0.5-1.5)
[2019-03-24 11:00] LABS: ALBUMIN 3.4 g/dL (3.5-5.0); BILIRUBIN,TOTAL 0.3 mg/dL (0.2-1.0); INR 1.06 (0.85-1.15); PARTIAL THROMBOPLASTIN TIME 25.7 SEC (26.3-35.5); PROTHROMBIN TIME 11.1 SEC (9.6-11.6); TOTAL PROTEIN, SERUM 6.8 g/dL (6.0-8.3)
[2019-03-24] MEDS ORDERED: IPRATROPIUM/ALBUTEROL SULFATE 3 ML SOLUTION IH ONE ×2 (11:02→18:22)
[2019-03-24 11:08] LABS: B-TYPE NATRIURETIC PEPTIDE 586 pg/mL (0-100)
[2019-03-24] MEDS ORDERED: METHYLPREDNISOLONE SOD SUCC 125MG/2ML VIAL ONE (11:55)
[2019-03-24 12:10] LABS: APPEARANCE,URINE Clear (CLEAR); BILIRUBIN,URINE Negative (NEGATIVE); COLOR,URINE Yellow (YELLOW); GLUCOSE, URINE (UA) Negative (NEGATIVE); KETONES,URINE Negative (NEGATIVE); LEUKOCYTE ESTERASE ,URINE Negative (NEGATIVE); NITRATE,URINE Negative (NEGATIVE); OCCULT BLOOD,URINE Negative (NEGATIVE); PH,URINE 5.5 (5.0-8.0); PROTEIN,URINE Negative (NEGATIVE); UROBILINOGEN,URINE 0.2 mg/dL (0.2-1.0)
[2019-03-24] MEDS ORDERED: CEFTRIAXONE SODIUM 1 GM ONE (14:16)
[2019-03-24] MEDS ORDERED: SODIUM CHLORIDE 0.9% 50 ML IV ONE (14:16)
[2019-03-24] MEDS ORDERED: LEVOFLOXACIN 500 MG/D5W 100 ML 100 ML ONE (14:16)
[2019-03-24] MEDS: METHYLPREDNISOLONE SOD SUCC 40MG/ML 1ML IVP SCH ×2 (15:15→23:33)
[2019-03-24] MEDS ORDERED: DEXTROSE 50%-WATER 50 ML DISP.SYRIN IV PRN (15:30)
[2019-03-24] MEDS ORDERED: GLUCAGON 1MG KIT 1 MG ML IM PRN (15:30)
[2019-03-24] MEDS ORDERED: ONDANSETRON HCL 4 MG/2 ML VIAL IVP PRN (15:30)
[2019-03-24] MEDS ORDERED: ACETAMINOPHEN 325 MG TAB PO PRN (15:30)
[2019-03-24] MEDS ORDERED: HYDRALAZINE HCL 20 MG/ML VIAL IV PRN (16:15)
[2019-03-24] MEDS: IPRATROPIUM/ALBUTEROL SULFATE 3 ML SOLUTION IH SCH ×2 (18:24→23:14)
[2019-03-24] MEDS ORDERED: METHYLPREDNISOLONE SOD SUCC 40MG/ML 1ML ONE (20:58)
[2019-03-24] MEDS ORDERED: FAMOTIDINE 20MG TAB 20 MG TAB ONE (20:58)
[2019-03-24] MEDS: FAMOTIDINE 20MG TAB 20 MG TAB PO SCH (21:00)
[2019-03-24] MEDS: INSULIN R PO SS1 SQ SCH (21:00)
[2019-03-24] MEDS ORDERED: INSULIN HUMULIN R 100 UNIT/ML 3ML ONE ×2 (21:08→21:13)
--- NOTE | 2019-03-24 22:43 | NUR ---
ADMISSION NOTE: Admitted to floor per stretcher from ER. Fully awake and responsive. AOx3. Continuously attached to O2 at 3LPM via NC with O2Sat at 99%. VS checked and recorded. Assessment done ( See CPOE flow chart for full assessment). Plan of care initiated. Hooked to telemetry with SR result. Home meds listed. Monitored and observed for any unusual changes. Needs attended and cared for. Denies feeling of discomfort. No apparent distress noted.
[2019-03-24 22:50] VITALS: BP 116/62
[2019-03-24] MEDS ORDERED: MIDO10TA PO (23:30)
[2019-03-24] MEDS ORDERED: IRON1CAP32 PO (23:30)
[2019-03-24] MEDS ORDERED: METF-444 PO (23:30)
[2019-03-24] MEDS ORDERED: BENZ200C53 PO (23:30)
[2019-03-24] MEDS ORDERED: ERGO500014 PO (23:30)
[2019-03-25] MEDS ORDERED: SODIUM CHLORIDE 3% FOR INHALATION 4 ML/AMP VIAL.NEB IH ONE (00:05)
[2019-03-25 04:00] VITALS: BP 120/69
[2019-03-25] MEDS: IPRATROPIUM/ALBUTEROL SULFATE 3 ML SOLUTION IH SCH ×4 (05:16→23:19)
[2019-03-25] MEDS: INSULIN R PO SS1 SQ SCH ×4 (05:50→19:56)
[2019-03-25] MEDS: METHYLPREDNISOLONE SOD SUCC 40MG/ML 1ML IVP SCH ×3 (06:17→23:22)
[2019-03-25 08:00] VITALS: BP 115/75
[2019-03-25] MEDS: FAMOTIDINE 20MG TAB 20 MG TAB PO SCH ×2 (09:07→20:15)
[2019-03-25] MEDS: METFORMIN HCL 500 MG TABLET PO SCH ×2 (10:32→17:17)
[2019-03-25] MEDS: BENZONATATE 100 MG CAPSULE PO SCH ×3 (10:32→20:15)
[2019-03-25] MEDS: FUROSEMIDE 20 MG TABLET PO SCH (10:32)
[2019-03-25] MEDS: SUCRALFATE 1 GM TABLET PO SCH ×2 (11:30→17:17)
[2019-03-25 11:40] VITALS: BP 120/66
--- NOTE | 2019-03-25 12:01 | NUR ---
DCP CM met [facility] discussed dc plans. Pt is independent prior to admission, lives at home with his provider who is also his friend Destiny Echeverria. Pt has oxygen portable and stationary, nebulizer machine, walker, wheelchair, shower chair. Denies any equipments/services. Pt feels safe to go back home, pt arranges most needs, provider able to assist with transportation and needs as necessary. Dcp to home once stable. CM to cont to follow up. Addendum: 03/25/19 at 1202 by BINTA GELLER LVN CM Amended: Links added.
[2019-03-25] MEDS: LEVOFLOXACIN 500 MG/D5W 100 ML 100 ML IV SCH (14:18)
[2019-03-25 16:18] VITALS: BP 112/64
[2019-03-25 16:49] LABS: DIGOXIN 0.63 ng/mL (0.50-2.00)
[2019-03-25] MEDS: DIGOXIN 125 MCG TABLET PO SCH (17:17)
[2019-03-25 17:20] LABS: THEOPHYLLINE < 2.0 mcg/mL (10.0-20.0)
[2019-03-25 19:10] VITALS: BP 117/62
[2019-03-25] MEDS: CARVEDILOL 3.125 MG TABLET PO SCH (20:15)
[2019-03-25] MEDS ORDERED: TRAZODONE HCL 50 MG TAB PO SCH (21:00)
[2019-03-25] MEDS ORDERED: THEOPHYLLINE ANHYDROUS 100 MG CAP.ER.24H PO SCH (21:00)
[2019-03-25 23:34] VITALS: BP 118/60
[2019-03-26 03:15] VITALS: BP 115/70
[2019-03-26 05:06] LABS: MEAN CORPUSCULAR HEMOGLOBIN 28.3 pg (27.0-33.0); MEAN CORPUSCULAR HGB CONC 33.6 g/dL (32.0-36.0); MEAN CORPUSCULAR VOLUME 84.3 fL (79-99); PLATELET COUNT (AUTO) 274 K/uL (130-400); RED BLOOD CELL COUNT(AUTO) 4.15 MIL/uL (4.50-6.20); RED CELL DISTRIBUTION WIDTH 15.6 % (11.0-15.5); WHITE BLOOD COUNT (AUTO) 15.3 K/uL (4.8-10.8)
[2019-03-26 05:29] LABS: CREATININE 0.8 mg/dL (0.5-1.5); POTASSIUM 4.2 mmol/L (3.5-5.1)
[2019-03-26] MEDS: INSULIN R PO SS1 SQ SCH ×3 (06:29→16:25)
[2019-03-26] MEDS: METHYLPREDNISOLONE SOD SUCC 40MG/ML 1ML IVP SCH ×2 (06:37→14:33)
[2019-03-26] MEDS: SUCRALFATE 1 GM TABLET PO SCH ×3 (06:38→16:24)
[2019-03-26] MEDS: IPRATROPIUM/ALBUTEROL SULFATE 3 ML SOLUTION IH SCH ×2 (06:47→11:15)
[2019-03-26 07:53] VITALS: BP 114/64
[2019-03-26] MEDS ORDERED: FE FUMARATE/FA/MV, MIN COMB#15 1 TAB PO SCH (09:00)
[2019-03-26] MEDS ORDERED: ASPIRIN 81 MG EC TAB PO SCH (09:00)
[2019-03-26] MEDS ORDERED: MIRABEGRON 25 MG PO SCH (09:00)
[2019-03-26] MEDS ORDERED: MIDODRINE HCL 5 MG TABLET PO SCH (09:00)
[2019-03-26] MEDS: FAMOTIDINE 20MG TAB 20 MG TAB PO SCH (09:31)
[2019-03-26] MEDS: CARVEDILOL 3.125 MG TABLET PO SCH (09:32)
[2019-03-26] MEDS: METFORMIN HCL 500 MG TABLET PO SCH ×2 (09:32→16:24)
[2019-03-26] MEDS: FUROSEMIDE 20 MG TABLET PO SCH (09:33)
[2019-03-26] MEDS: BENZONATATE 100 MG CAPSULE PO SCH ×2 (09:34→14:31)
[2019-03-26 12:02] VITALS: BP 137/71
[2019-03-26] MEDS: LEVOFLOXACIN 500 MG/D5W 100 ML 100 ML IV SCH (14:31)
[2019-03-26] MEDS ORDERED: LEVO500T2 PO (15:21)
[2019-03-26] MEDS ORDERED: PRED20TA3 PO (15:21)
[2019-03-26] MEDS: DIGOXIN 125 MCG TABLET PO SCH (16:24)
[2019-03-26 16:42] VITALS: BP 141/68
--- NOTE | 2019-03-26 16:53 | NUR ---
DISCHARGE INSTRUCTIONS GIVEN AND PRESCRIPTIONS EXPLAINED TO PATIENT/. ALL QUESTIONS ANSWERED. IV DISCONTINUED WITH INNER CANNULA INTACT. PATIENT AWAITING A RIDE HOME.
[2019-04-01] MEDS ORDERED: ERGOCALCIFEROL (VITAMIN D2) 50,000 UNIT CAPSULE PO SCH (09:00)
== END 2019-03-26 17:05 | disposition home or self-care (01) | DRG 193 ==
LOC: EDH 09:54 → EDHIP 15:00 → OBSVTOIN 15:00 → 3BH 21:45
PROVIDERS: ADMIT Internal Medicine; ATTEND Internal Medicine
DX: J18.1 Lobar pneumonia, unspecified organism (principal); J96.21 Acute and chronic respiratory failure with hypoxia; J44.0 Chronic obstructive pulmonary disease with (acute) lower respiratory infection; J44.1 Chronic obstructive pulmonary disease with (acute) exacerbation; I25.10 Atherosclerotic heart disease of native coronary artery without angina pectoris; I48.91 Unspecified atrial fibrillation; R91.8 Other nonspecific abnormal finding of lung field; I11.0 Hypertensive heart disease with heart failure; I50.9 Heart failure, unspecified; E11.9 Type 2 diabetes mellitus without complications; Z99.81 Dependence on supplemental oxygen; Z87.891 Personal history of nicotine dependence; Z79.899 Other long term (current) drug therapy; Z79.84 Long term (current) use of oral hypoglycemic drugs
CPT/HCPCS: 36415; 71045; 71250; 80048; 80053; 80162; 80198; 81003; 82550; 82948; 83605; 83880; 84484; 85025; 85027; 85610; 85730; 87040; 87071; 87077; 87186; 87205; 87804; 93005; 94640; 94664; G0378; J0696; J1815; J1956; J2920; J2930